=== PATIENT | female | born 1960 | race Hispanic/Latino ===

== ENCOUNTER 2017-07-15 07:12 | Day surgery (SDC) | payer BC ==
[2017-07-08 14:09] VITALS: BMI 27.4
[2017-07-15 07:50] LABS: BASO # 0.03 K/mm3 (0.0-2.0); BASO % 0.5 % (0.0-3.0); EOS # 0.2 (0.0-0.7); EOS % 2.3 % (1.5-5.0); GRAN # 3.5 (1.4-6.5); GRAN % 54.6 % (50.0-68.0); HEMOGLOBIN 12.6 g/dL (12.0-16.0); LYMPH % 30.5 % (22.0-35.0); MEAN CELL VOLUME 97.2 fl (80.0-105.0); MEAN CORPUSCULAR HEMOGLOBIN 32.5 pg (25.0-35.0); MEAN CORPUSCULAR HGB CONC 33.4 g/dl (31.0-37.0); MEAN PLATELET VOLUME 8.7 fl (7.0-11.0); MONO # 0.8 (0.1-0.6); MONO % 12.1 % (1.0-6.0); RBC 3.88 10^6/uL (3.5-6.1); RED CELL DISTRIBUTION WIDTH 14.2 % (11.5-14.5); WHITE BLOOD COUNT 6.4 10^3/ul (4.5-11.0)
[2017-07-15 07:57] LABS: BLOOD UREA NITROGEN 12 mg/dL (7-21); GFR AFRICAN-AMERICAN > 60; GFR NON-AFRICAN AMERICAN > 60
[2017-07-15 08:01] LABS: INR 1.04 (0.93-1.08); PARTIAL THROMBOPLASTIN TIME 27.7 Seconds (25.1-36.5)
[2017-07-15] MEDS ORDERED: Midazolam 2 MG/2 ML VIAL ONE (09:10)
[2017-07-15] MEDS ORDERED: Lidocaine 1% Inj (20ml) ONE (09:34)
[2017-07-15] MEDS ORDERED: Oxycodone/Acetaminophen 5/325 mg Tab PO PRN (10:12)
[2017-07-15] MEDS ORDERED: Sodium Chloride 0.45% 1,000 ML IV SCH (10:15)
[2017-07-15 10:35] VITALS: O2SAT 100
[2017-07-15 11:15] VITALS: BP 104/76; PULSE 70; RESP 20; TEMP 97.8
--- NOTE | 2017-07-15 15:33 | CT ---
PROCEDURE: CT guided right acromial bone biopsy. HISTORY: Breast carcinoma. 2 cm lytic lesion on PET scan in the right acromion. Evaluate for metastatic disease. PHYSICIAN(S): Morris Ulrich MD. TECHNIQUE: The relative risks and indications of the procedure were explained to the patient and consent obtained. The patient was placed left decubitus position on the CT scanner and preliminary images through the right AC joint obtained. Conscious sedation and monitoring were provided throughout the procedure by a nurse. There is a 2.5 cm lytic area in the distal aspect of the right acromion.. A right posterior oblique approach was selected and the area prepped and draped in the usual sterile fashion. 1% Xylocaine was used to anesthetize the skin and soft tissues. A on control bone biopsy needle was advanced at an oblique angle to the lytic area. Two core biopsies were obtained. The patient tolerated the procedure well IMPRESSION: 1. CT-guided right acromium bone biopsy as described above.
== END 2017-07-15 13:00 | disposition home or self-care (01) ==
LOC: SDS 07:12
PROVIDERS: ATTEND Radiology Vascular & Interventional Radiology
DX: C85.14 Unspecified B-cell lymphoma, lymph nodes of axilla and upper limb (principal); C50.911 Malignant neoplasm of unspecified site of right female breast; I10 Essential (primary) hypertension; I25.10 Atherosclerotic heart disease of native coronary artery without angina pectoris; Z98.42 Cataract extraction status, left eye; Z98.41 Cataract extraction status, right eye; Z95.1 Presence of aortocoronary bypass graft
CPT/HCPCS: 20220; 36415; 77012; 80048; 85025; 85610; 85730; 88307; 88311; 99152; 99153; J2250; J2405; J3010; J7030

== ENCOUNTER 2017-09-08 12:07 | Day surgery (SDC) | payer BC ==
[2017-09-06 12:38] VITALS: BMI 27.8
[2017-09-08 12:52] LABS: BASO # 0.01 K/mm3 (0.0-2.0); EOS # 0.2 (0.0-0.7); EOS % 22.7 % (1.5-5.0); GRAN # 0.02 (1.4-6.5); HEMOGLOBIN 11.8 g/dL (12.0-16.0); LYMPH # 0.7 (1.2-3.4); LYMPH % 72.2 % (22.0-35.0); MEAN CELL VOLUME 94.6 fl (80.0-105.0); MEAN CORPUSCULAR HEMOGLOBIN 32.2 pg (25.0-35.0); MEAN PLATELET VOLUME 9.7 fl (7.0-11.0); MONO % 2.1 % (1.0-6.0); PLATELET COUNT 107 10^3/uL (120.0-450.0); RBC 3.67 10^6/uL (3.5-6.1); RED CELL DISTRIBUTION WIDTH 13.1 % (11.5-14.5)
[2017-09-08 13:08] LABS: BLOOD UREA NITROGEN 12 mg/dL (7-21); CALCIUM 8.8 mg/dL (8.4-10.5); GFR AFRICAN-AMERICAN > 60; GFR NON-AFRICAN AMERICAN > 60
[2017-09-08 13:12] LABS: INR 1.06 (0.93-1.08); PARTIAL THROMBOPLASTIN TIME 25.9 Seconds (25.1-36.5); PROTHROMBIN TIME 12.1 SECONDS (9.4-12.5)
[2017-09-08 14:25] LABS: BAND 1 % (0-2); EOSINOPHIL 18 % (0.0-3.0); LYMPHOCYTE 72 % (22.0-35.0); MONOCYTE 7 % (1.0-6.0); NEUTROPHIL 2 % (50.0-70.0)
[2017-09-08 14:26] LABS: PLATELET ESTIMATE LOW (NORMAL)
[2017-09-08] MEDS ORDERED: Lidocaine 2% Inj (20ml) ONE (16:04)
[2017-09-08] MEDS ORDERED: Iodixanol 320 MG/ML 100 ML BOTTLE IV ONE (16:04)
[2017-09-08] MEDS ORDERED: Midazolam 2 MG/2 ML VIAL ONE (16:16)
[2017-09-08] MEDS ORDERED: Oxycodone/Acetaminophen 5/325 mg Tab PO PRN (16:56)
[2017-09-08] MEDS ORDERED: Sodium Chloride 0.45% 1,000 ML IV SCH (17:00)
[2017-09-08 17:52] VITALS: RESP 18; TEMP 98.6
[2017-09-08 18:11] VITALS: BP 102/55; PULSE 77; O2SAT 95
--- NOTE | 2017-09-08 19:06 | VASCULAR ---
PROCEDURE: Ultrasound and fluoroscopic leftupper extremity venous access port. CLINICAL HISTORY: B-cell lymphoma. History breast CA.Venous port for chemotherapy. PHYSICIAN(S): Morris Ulrich M.D. TECHNIQUE: The relative risks and indications of the procedure were explained to the patient and consent obtained. The patient was placed supine on the arteriogram table and the left arm prepped and draped in the usual sterile fashion. Conscious sedation monitoring was provided throughout the procedure by a nurse. Antibiotics were given prior to the procedure. A tourniquet was applied the left axilla. Under direct ultrasound guidance, the left basilic vein was punctured with a micro-puncture set. A 0.035 angled Glidewire was advanced into the IVC. A 4 cm incision was made at the venous access site and the pocket blunted dissected. A 6 Telugu single-lumen catheter, 40 cm long, was advanced to the SVC/RA junction. The catheter was trimmed and attached to the port. The port aspirates and injects easily. The port was placed in the pocket and closed in 2 layers. The patient tolerated the procedure well. IMPRESSION: Ultrasound and fluoroscopically placed left upper extremity venous access port.
== END 2017-09-08 18:40 | disposition home or self-care (01) ==
LOC: SDS 12:07
PROVIDERS: ATTEND Radiology Vascular & Interventional Radiology
DX: C50.919 Malignant neoplasm of unspecified site of unspecified female breast (principal); C85.10 Unspecified B-cell lymphoma, unspecified site; I25.10 Atherosclerotic heart disease of native coronary artery without angina pectoris; Z95.1 Presence of aortocoronary bypass graft
CPT/HCPCS: 36415; 36561; 76937; 77001; 80048; 85025; 85610; 85730; 99152; C1769; C1788; J0690; J1644; J2250; J2405; J3010; J7030 ×2; Q9967

== ENCOUNTER 2017-10-21 10:05 | Inpatient (IN) | payer BC ==
[2017-10-21 10:13] VITALS: BMI 27.4
--- NOTE | 2017-10-21 10:56 | ED PDOC ---
Arrival/HPI - General Chief Complaint: Abnormal Skin Integrity Time Seen by Provider: 10/21/17 10:44 Historian: Patient - History of Present Illness Narrative History of Present Illness (Text): 57 y/o F w/ h/o high grade lymphoma, currently on aspirin and Plavix presenting with mechanical fall that occurred today. She reports walking a dog when she stepped on a piece of uneven pavement and sustained mechanical fall onto her left side. She reports sustaining a laceration to her left forehead. She reports being unconscious for a few seconds, but was able to arise on her own. She denies neck pain, back pain or midline tenderness. She reports being able to ambulate with assistance. She denies chest pain, shortness of breath, fevers , chills, dizziness, abdominal pain, cough, nausea/emesis, back pain, numbness/ tingling or any syncopal episode. Representative Phlebotomy Services: Dr. Wise Oncologist: Dr. Dunbar PCP: Dr. Contreras Neurologist: Dr. Martin Symptom Onset: Sudden Symptom Course: Other Quality: Unable to Describe Severity Level: 6 Activities at Onset: Light Context: Walking Past Medical History - Provider Review Nursing Documentation Reviewed: Yes - Travel History Have you recently traveled outside [place] w/in the past 3 mons?: No - Infectious Disease Hx of Infectious Diseases: None - Reproductive Menopause: Yes - Cardiac Hx Pacemaker: No Other/Comment: triple bypass - Pulmonary Hx Respiratory Disorders: No - Neurological Hx Paralysis: No - Hematological/Oncological Hx Blood Transfusions: Yes Hx Blood Transfusion Reaction: No Other/Comment: lymphoma - Musculoskeletal/Rheumatological Hx Musculoskeletal Disorders: Yes - Psychiatric Hx Emotional Abuse: No Hx Physical Abuse: No Hx Substance Use: No - Anesthesia Hx Anesthesia Reactions: No Hx Malignant Hyperthermia: No - Suicidal Assessment Feels Threatened In Home Enviroment: No Family/Social History - Physician Review Nursing Documentation Reviewed: Yes Family/Social History: No Known Family HX Smoking Status: Unknown If Ever Smoked Hx Alcohol Use: Yes (WINE AT [employer]) Hx Substance Use: No Allergies/Home Meds Allergies/Adverse Reactions: Allergies No Known Allergies Allergy (Verified 10/21/17 16:20) Home Medications: Home Meds Medication Instructions Recorded Confirmed Amitriptyline [Elavil] 50 mg PO HS 07/08/17 10/21/17 Anastrozole [Arimidex] 1 mg PO QPM 07/08/17 10/21/17 Aspirin [Adult Aspirin] 81 mg PO QPM 07/08/17 10/21/17 Cetirizine HCl [Zyrtec] 10 mg PO QPM 07/08/17 10/21/17 Cholecalciferol (Vitamin D3) 50,000 units PO Q2W 07/08/17 10/21/17 [Vitamin D3] Clopidogrel [Plavix] 75 mg PO QPM 07/08/17 10/21/17 Ezetimibe [Zetia] 10 mg PO QPM 07/08/17 10/21/17 Metoprolol Succinate XL [Toprol XL] 50 mg PO QPM 07/08/17 10/21/17 Montelukast Sodium [Singulair] 10 mg PO QPM 07/08/17 10/21/17 Rosuvastatin Calcium [Crestor] 40 mg PO QPM 07/08/17 10/21/17 Docusate [Colace] 100 mg PO DAILY 10/21/17 10/21/17 Review of Systems - Review of Systems Constitutional: Normal Eyes: Normal Respiratory: Normal. absent: SOB, Cough Cardiovascular: absent: Chest Pain, Palpitations, Edema Gastrointestinal: absent: Abdominal Pain, Nausea, Vomiting Musculoskeletal: absent: Back Pain, Neck Pain, Myalgias Skin: Laceration Neurological: absent: Headache, Dizziness, Focal Weakness, Gait Changes Hemo/Lymphatic: Easy Bleeding Psychiatric: Anxiety Physical Exam Vital Signs Reviewed: Yes Vital Signs Temp Pulse Resp BP Pulse Ox 10/21/17 13:57 80 18 118/64 100 10/21/17 12:11 78 18 98/64 L 100 10/21/17 10:11 98.1 F 78 18 121/70 100 Temperature: Afebrile Blood Pressure: Normal Pulse: Regular Appearance: Positive for: Well-Appearing Mental Status: Positive for: Alert and Oriented X 3 - Systems Exam Head: Present: Laceration (2cm linear laceration noted to L nondenominational) Pupils: Present: PERRL Extroacular Muscles: Present: EOMI Conjunctiva: Present: Normal Mouth: Present: Moist Mucous Membranes Neck: Present: Normal Range of Motion. No: MIDLINE TENDERNESS, Paraspinal Tenderness Respiratory/Chest: Present: Clear to Auscultation, Good Air Exchange. No: Respiratory Distress, Tachypneic Cardiovascular: Present: Regular Rate and Rhythm, Normal S1, S2 Abdomen: No: Tenderness, Distention, Peritoneal Signs Back: No: Midline Tenderness, Paraspinal Tenderness Upper Extremity: Present: Other (ecchymoses present on LUE w/ palpable catheter embedded w/n skin). No: Cyanosis, Edema Neurological: Present: GCS=15, CN II-XII Intact, Speech Normal, Motor Func Grossly Intact, Normal Sensory Function Skin: Present: Warm, Dry (Healed surgical midline scar present in chest), Laceration (2cm laceration noted to L nondenominational), Other Psychiatric: Present: Alert, Oriented x 3, Normal Insight, Normal Concentration Medical Decision Making ED Course and Treatment: Impression 57 y/o F on Plavix and ASA presenting with head injury s/p mechanical fall. Given the patient's history of being on blood thinners, she is at risk for intracranial bleeding and possible C-spine fracture(meets eligibility criteria per Emm[place] C-Spine rule). If bleeding is discovered, she will be monitored in the ICU with repeat imaging studies to determine progression of bleed. Differential Includes but is not limited to: Subarachnoid hemorrhage Subdural hemorrhage Calavarial fracture Plan -Labs(including coags) -Consult NeuroSx, ICU & PCP(as well as oncology and neurology) -Frequent Neuro Checks Q2H Progress Notes 11:15 Radiologist discussion reveals small subarachnoid hemorrhages present within sulci of bilateral hemispheres. CT c-spine shows no acute fractures or subluxations. Call placed to Dr. Orozco(neurosurgery). 10/21/17 12:[address] Orozco who agrees with plan of management. He requests for repeat CTH to be performed in the morning. Call to motion picture camera lens technician placed. 10/21/17 12:[address] Moreno(motion picture camera lens technician) who will evaluate the patient. Awaiting call back from Dr. Garcia. 10/21/17 15:[address] Moreno who accepts patient to ICU under care of Dr. Garcia. Patient states she has a neurologist, Dr. Martin. Will check to see if Dr. Martin has privileges at hospital. 10/21/17 15:[address] Mckeon(oncologist) who requests patient to be transferred over to his service. He states patient had active chemotherapy last week. He requests Dr. Cruz(neurology) to be consulted. Call placed to Dr. Garcia. 10/21/17 16:[address] Garcia(PCP) & updated him on transition of care to Dr. Cameron. Spoke to Dr. Torey Cruz(neurology) who requests CT angiography of the head to be performed to evaluate for rebleeding. Will update ICU team of impending imaging studies. Spoke to Dr. Moreno(motion picture camera lens technician) who is aware of updated findings and will perform CTA tonight. - Lab Interpretations Lab Results: 10/21/17 11:25 10/21/17 11:25 Lab Results 10/21/17 11:25: Sodium 141, Potassium 4.1, Chloride 105, Carbon Dioxide 27, Anion Gap 13, BUN 9, Creatinine 0.5 L, Est GFR ( Amer) > 60, Est GFR (Non -Af Amer) > 60, Random Glucose 100, Calcium 9.3, Total Bilirubin 0.2, AST 21, ALT 28, Alkaline Phosphatase 88, Total Protein 6.2, Albumin 3.7, Globulin 2.6, Albumin/Globulin Ratio 1.4 10/21/17 11:25: WBC 4.8 D, RBC 3.39 L, Hgb 10.7 L, Hct 32.1 L, MCV 94.7, MCH 31.6, MCHC 33.3, RDW 14.4, Plt Count 105 L, MPV 9.1, Gran % 72.2 H, Lymph % ( Auto) 11.8 L, [place] % (Auto) 14.7 H, Eos % (Auto) 1.1 L, Baso % (Auto) 0.2, Gran # 3.44, Lymph # (Auto) 0.6 L, [place] # (Auto) 0.7 H, Eos # (Auto) 0.1, Baso # ( Auto) 0.01 10/21/17 11:25: PT 12.3, INR 1.07, APTT 25.3 - RAD Interpretation Radiology Orders: 10/21/17 10:44 HEAD W/O CONTRAST [CT] Stat 10/21/17 10:45 CERVICAL SPINE W/O CONTRAST [CT] Stat - EKG Interpretation EKG Interpretation (Text): NSR @ 80bpm. No ST elevations. No T wave changes. Interpreted by ED Physician: Yes Type: 12 lead EKG Comparison: Similar to previous EKG - Medication Orders Current Medication Orders: Allopurinol (Zyloprim) 100 mg PO BID MANUELA Ezetimibe (Zetia) 10 mg PO QPM MANUELA Famotidine (Pepcid) 20 mg PO QPM MANUELA Montelukast Sodium (Singulair) 10 mg PO QPM MANUELA Non-Formulary Medication (Rosuvastatin Calcium [Crestor]) 40 mg PO QPM MANUELA Discontinued Medications Famotidine (Pepcid) 20 mg IVP STAT STA Stop: 10/21/17 12:05 Last Admin: 10/21/17 12:25 Dose: 20 mg IVP Administration Document 10/21/17 12:25 MR (Rec: 10/21/17 12:25 [id number]) Charges for Administration # of IVP Administrations 1 Sodium Chloride (Sodium Chloride 0.9%) 1,000 mls @ 999 mls/hr IV .Q1H1M STA Stop: 10/21/17 13:06 Last Admin: 10/21/17 12:25 Dose: 999 mls/hr eMAR Start Stop Document 10/21/17 12:25 MR (Rec: 10/21/17 12:25 [id number]) Intravenous Solution Start Date 10/21/17 Start Time 12:25 End Date 10/21/17 End time 13:25 Total Infusion Time 60 Metoclopramide HCl (Reglan) 10 mg IVP STAT STA Stop: 10/21/17 12:05 Last Admin: 10/21/17 12:26 Dose: 10 mg IVP Administration Document 10/21/17 12:26 MR (Rec: 10/21/17 12:26 [id number]) Charges for Administration # of IVP Administrations 1 Disposition/Present on Arrival - Present on Arrival Any Indicators Present on Arrival: No History of DVT/PE: No History of Uncontrolled Diabetes: No Urinary Catheter: No History of Decub. Ulcer: No History Surgical Site Infection Following: None - Disposition Have Diagnosis and Disposition been Completed?: Yes Diagnosis: Subarachnoid bleed, Laceration of head, Fall (on)(from) sidewalk curb, initial encounter Disposition: HOSPITALIZED Disposition Time: 15:30 Patient Problems: Current Active Problems Problem Status Onset Fall (on)(from) sidewalk curb, initial encounter Acute Laceration of head Acute Subarachnoid bleed Acute Condition: FAIR
--- NOTE | 2017-10-21 11:13 | CT ---
Date of service: 10/21/2017 PROCEDURE: CT HEAD WITHOUT CONTRAST. HISTORY: mechanical fall COMPARISON: None available. TECHNIQUE: Axial computed tomography images were obtained through the head/brain without intravenous contrast. Radiation dose: Total exam DLP = 945 mGy-cm. This CT exam was performed using one or more of the following dose reduction techniques: Automated exposure control, adjustment of the mA and/or kV according to patient size, and/or use of iterative reconstruction technique. FINDINGS: HEMORRHAGE: There is a small amount of subarachnoid blood seen in the sulci of both cerebral hemispheres. There is no evidence of subdural hemorrhage. BRAIN: No mass effect or edema. No atrophy or chronic microvascular ischemic changes. VENTRICLES: Unremarkable. No hydrocephalus. CALVARIUM: Unremarkable. PARANASAL SINUSES: Unremarkable as visualized. No significant inflammatory changes. MASTOID AIR CELLS: Unremarkable as visualized. No inflammatory changes. OTHER FINDINGS: Findings were discussed with Dr. Craig at 11:10 a.m. IMPRESSION: There is a small amount of subarachnoid blood seen in the sulci of both cerebral hemispheres. There is no evidence of subdural hemorrhage.
--- NOTE | 2017-10-21 11:15 | CT ---
Date of service: 10/21/2017 PROCEDURE: CT Cervical Spine without contrast HISTORY: fall COMPARISON: None available. TECHNIQUE: Axial computed tomography images were obtained of the cervical spine without the use of intravenous contrast. Coronal and sagittal reformatted images were created and reviewed. Radiation dose: Total exam DLP = 404 mGy-cm. This CT exam was performed using one or more of the following dose reduction techniques: Automated exposure control, adjustment of the mA and/or kV according to patient size, and/or use of iterative reconstruction technique. FINDINGS: VERTEBRAE: No fracture. Normal alignment. No destructive bony lesion. DISCS/SPINAL CANAL/NEURAL FORAMINA: No significant central canal or neural foraminal stenosis. Disc degeneration in the lower cervical spine PARASPINAL SOFT TISSUES: Unremarkable. OTHER FINDINGS: None. IMPRESSION: No acute findings
[2017-10-21 11:40] LABS: BASO # 0.01 K/mm3 (0.0-2.0); BASO % 0.2 % (0.0-3.0); EOS # 0.1 (0.0-0.7); EOS % 1.1 % (1.5-5.0); GRAN # 3.44 (1.4-6.5); GRAN % 72.2 % (50.0-68.0); HEMOGLOBIN 10.7 g/dL (12.0-16.0); LYMPH # 0.6 (1.2-3.4); LYMPH % 11.8 % (22.0-35.0); MEAN CELL VOLUME 94.7 fl (80.0-105.0); MEAN CORPUSCULAR HEMOGLOBIN 31.6 pg (25.0-35.0); MEAN CORPUSCULAR HGB CONC 33.3 g/dl (31.0-37.0); MEAN PLATELET VOLUME 9.1 fl (7.0-11.0); MONO # 0.7 (0.1-0.6); MONO % 14.7 % (1.0-6.0); RBC 3.39 10^6/uL (3.5-6.1); RED CELL DISTRIBUTION WIDTH 14.4 % (11.5-14.5); WHITE BLOOD COUNT 4.8 10^3/ul (4.5-11.0)
[2017-10-21 11:50] LABS: INR 1.07; PROTHROMBIN TIME 12.3 SECONDS (9.4-12.5)
[2017-10-21 11:53] LABS: PARTIAL THROMBOPLASTIN TIME 25.3 Seconds (25.1-36.5)
[2017-10-21 12:01] LABS: ALB/GLOB RATIO 1.4 (1.1-1.8); ALBUMIN 3.7 g/dL (3.0-4.8); ALT/SGPT 28 U/L (7-56); AST/SGOT 21 U/L (14-36); BLOOD UREA NITROGEN 9 mg/dL (7-21); CALCIUM 9.3 mg/dL (8.4-10.5); GFR AFRICAN-AMERICAN > 60; GFR NON-AFRICAN AMERICAN > 60
[2017-10-21] MEDS ORDERED: Sodium Chloride 0.9% 1,000 ML IV STA (12:06)
--- NOTE | 2017-10-21 12:14 | CP.PCM.PN ---
Subjective - Date & Time of Evaluation Date of Evaluation: 10/21/17 Time of Evaluation: 12:12 - Subjective Subjective: 57 yo female tripped and fell while walking dog cT shows traumatic SAH no intervention at this time repeat CT in AM if unchanged can be d/c home Objective - Vital Signs/Intake and Output Vital Signs (last 24 hours): Temp Pulse Resp BP Pulse Ox 98.1 F 78 18 98/64 L 100 10/21/17 10:11 10/21/17 12:11 10/21/17 12:11 10/21/17 12:11 10/21/17 12:11 - Medications Medications: Current Medications Sodium Chloride (Sodium Chloride 0.9%) 1,000 mls @ 999 mls/hr IV .Q1H1M STA Stop: 10/21/17 13:06 - Labs Labs: 10/21/17 11:25 10/21/17 11:25 PT 12.3 SECONDS (9.4-12.5) 10/21/17 11:25 INR 1.07 10/21/17 11:25 APTT 25.3 Seconds (25.1-36.5) 10/21/17 11:25
--- NOTE | 2017-10-21 14:20 | RAD ---
Date of service: 10/21/2017 HISTORY: fall COMPARISON: No prior. FINDINGS: The left PICC line terminates at the cavoatrial junction. LUNGS: The lungs are hyperinflated and there is peribronchial thickening with chronic changes in both lungs. No focal consolidation. There is mild pulmonary venous congestion PLEURA: No significant pleural effusion identified, no pneumothorax apparent. CARDIOVASCULAR: There is mild cardiomegaly. Status post CABG. OSSEOUS STRUCTURES: No significant abnormalities. VISUALIZED UPPER ABDOMEN: Normal. OTHER FINDINGS: None. IMPRESSION: No acute findings. COPD. Mild cardiomegaly and pulmonary venous congestion.
--- NOTE | 2017-10-21 15:03 | CP.PCM.CON ---
History of Present Illness - History of Present Illness History of Present Illness: This is a 57F with a hx of b-cell lymphoma on chemo and CAD s/p CABG (10 years ago).presenting with mechanical fall earlier today resulting in CT Head showing small BL SAH. She woke up in her usual state of health this morning, went out to walk her dog around 0900am. She stepped on uneven pavement and suddenly fell her left side. She does not recall specific details of the fall but says it is possible that she +LOC. She sustained a laceration to her left forehead. She was able to get up on her own and get help. She denies any neuro symptoms such as weakness, slurred speech, or vision changes. She denies neck pain, back pain or headaches. She denies chest pain, shortness of breath, dizziness, abdominal pain, cough, nausea/emesis, back pain, numbness/tingling,. She was brought into the ED and a CT HEAD demonstrated small SAH in BL sulci. Neurosurg was informed and recommended no surgical intervention. She is not on anticoagulation however she is on dual antiplatlet for her CAD/PVD Of note, she has a hx of b-cell lymphoma currently on RCHOP. She had her 3rd cycle last week. She only gets pred for 5 days after her tx and is not currently on pred. Onc is Dr. Cameron. PMH: B Cell lymphoma on RCHOP CAD/CABG over 10 years ago [facility] Past Surgical Hx: CABG Allx: none Social: lives alone; smoking 30yrs x 1ppd quit 10 years ago. Rare etoh; Review of Systems - Review of Systems All systems: reviewed and no additional remarkable complaints except - Constitutional Constitutional: As Per HPI - EENT Eyes: absent: As Per HPI, Blind Spots, Blurred Vision, Change in Vision, Decreased Night Vision, Diplopia, Discharge, Dry Eye, Exophthalmos, Floaters, Irritation, Itchy Eyes, Loss of Peripheral Vision, Pain, Photophobia, Requires Corrective Lenses, Sees Flashes, Spots in Vision, Tunnel Vision, Other Visual Disturbances, Loss of Vision, Other - Cardiovascular Cardiovascular: absent: As Per HPI, Acrocyanosis, Chest Pain, Chest Pain at Rest , Chest Pain with Activity, Claudication, Diaphoresis, Dyspnea, Dyspnea on Exertion, Edema, Irregular Heart Rhythm, Pain Radiating to Arm/Neck/Jaw, Leg Edema, Leg Ulcers, Lightheadedness, Orthopnea, Palpitations, Paroxysmal Nocturnal Dyspnea, Pedal Edema, Radiating Pain, Rapid Heart Rate, Slow Heart Rate, Syncope, Other - Respiratory Respiratory: absent: As Per HPI, Cough, Dyspnea, Hemoptysis, Dyspnea on Exertion , Wheezing, Snoring, Stridor, Pain on Inspiration, Chest Congestion, Excessive Mucous Production, Change in Mucous Color, Pain with Coughing, Other - Gastrointestinal Gastrointestinal: absent: As Per HPI, Abdominal Pain, Belching, Bloating, Change in Bowel Habits, Change in Stool Character, Coffee Ground Emesis, Constipation, Cramping, Diarrhea, Dyspepsia, Dysphagia, Early Satiety, Excessive Flatus, Fecal Incontinence, Heartburn, Hematemesis, Hematochezia, Loose Stools, Melena, Nausea, Odynophagia, Temesmus, Vomiting, Other - Musculoskeletal Musculoskeletal: As Per HPI - Integumentary Integumentary: As Per HPI - Neurological Neurological: absent: As Per HPI, Abnormal Gait, Abnormal Hearing, Abnormal Movements, Abnormal Speech, Behavioral Changes, Burning Sensations, Confusion, Convulsions, Disequilibrium, Dizziness, Numbness, Focal Weakness, Frequent Falls , Headaches, Lack of Coordination, Loss of Vision, Memory Loss, Paresthesias, Radicular Pain, Restless Legs, Sensory Deficit, Syncope, Tingling, Tremor, Vertigo, Weakness, Other Visual Disturbances, Other Past Patient History - Infectious Disease Hx of Infectious Diseases: None - Past Medical History & Family History Past Medical History?: Yes - Past Social History Smoking Status: Unknown If Ever Smoked - CARDIAC Hx Pacemaker: No Other/Comment: triple bypass - PULMONARY Hx Respiratory Disorders: No - NEUROLOGICAL Hx Paralysis: No - HEMATOLOGICAL/ONCOLOGICAL Hx Blood Transfusions: Yes Hx Blood Transfusion Reaction: No Other/Comment: lymphoma - MUSCULOSKELETAL/RHEUMATOLOGICAL Hx Musculoskeletal Disorders: Yes - PSYCHIATRIC Hx Emotional Abuse: No Hx Physical Abuse: No Hx Substance Use: No - SURGICAL HISTORY Hx Surgeries: Yes - ANESTHESIA Hx Anesthesia Reactions: No Hx Malignant Hyperthermia: No Meds Allergies/Adverse Reactions: Allergies Allergy/AdvReac Type Severity Reaction Status Date / Time No Known Allergies Allergy Verified 10/21/17 10:15 - Medications Medications: Current Medications Allopurinol (Zyloprim) 100 mg PO BID MANUELA Ezetimibe (Zetia) 10 mg PO QPM MANUELA Famotidine (Pepcid) 20 mg PO QPM MANUELA Montelukast Sodium (Singulair) 10 mg PO QPM MANUELA Non-Formulary Medication (Rosuvastatin Calcium [Crestor]) 40 mg PO QPM MANUELA Home Meds: ASA Plavix toprol XL 50 pepcid crestor zetia amitriptylline arimidex singulair 10 allopurinol 100 BID coloace percocet PRN Physical Exam - Head Exam Additional comments: laceration wrapped by ED, dressing c/d/i - Eye Exam Eye Exam: EOMI, Normal appearance Pupil Exam: NORMAL ACCOMODATION, PERRL - ENT Exam ENT Exam: Mucous Membranes Dry, Normal Exam - Neck Exam Neck exam: Positive for: Normal Inspection - Respiratory Exam Respiratory Exam: Clear to Auscultation Bilateral - Cardiovascular Exam Cardiovascular Exam: REGULAR RHYTHM. absent: Tachycardia, JVD, Rubs - GI/Abdominal Exam GI & Abdominal Exam: Normal Bowel Sounds - Extremities Exam Extremities exam: Positive for: normal inspection Additional comments: Strength 5/5 bl UE and LE Results - Vital Signs Recent Vital Signs: Last Vital Signs Temp 98.1 F 10/21/17 10:11 Pulse 80 10/21/17 13:57 Resp 18 10/21/17 13:57 BP 118/64 10/21/17 13:57 Pulse Ox 100 10/21/17 13:57 - Labs Result Diagrams: 10/21/17 11:25 10/21/17 11:25 - Imaging and Cardiology CT scan - head Additional comment: Small SAH BL Sulci Assessment & Plan - Assessment and Plan (Free Text) Assessment: 1. Acute SAH 2. Hx of CAD/CABG on ASA/PLAVIX 3. BCell lympoma on RCHOP Dafne is a 57F presenting with a SAH from a mechanical fall. She has no neurological/cognitive deficits however she is at risk for declining given that she is on dual antiplatelet. In addition she is thrombocytopenic at 105 which may be from her chemo. At this point we will observe her in the ICU with q1 neuro checks. HOLD asa/plavix and BB for now. Her BP runs low which may benefit her in this situation was we want to avoid hypertension. Any acute neuro changes should warrant STAT CT head. Neurosurg is on board and we will follow their recs. Plan for repeat CT Head in AM. Will notify Onc (Dr Cameron) in regards to his patient. Tiffani Dhillon MD Critical Care Time: 45 mins
[2017-10-21] MEDS: Apap-Butalbital-Caffeine 325-50-40mg Tab PO PRN (18:18)
[2017-10-21] MEDS ORDERED: Aluminum Hydroxide/Magnesium 30 ML, DiphenhydrAMINE 75 MG, Lidocaine 2% Viscous 30 ML PO PRN (19:26)
--- NOTE | 2017-10-21 19:33 | CON ---
Copied To: Stephen Cruz MD Attending MD: Stephen Cruz MD DATE: 10/21/2017 NEUROLOGY CONSULTATION CHIEF COMPLAINT: Status post fall, status post subarachnoid hemorrhage. HISTORY OF PRESENT ILLNESS: This is a 57-year-old woman with history of B-cell lymphoma, on chemotherapy by Dr. Cameron; coronary artery disease, status post CABG 10 years ago, presented for mechanical fall earlier today resulting in a trauma to the left part of the head, resulting in a CAT scan showing a small bilateral subarachnoid hemorrhage, small in nature. No evidence of any subdural. She denies any paresthesias in terms of tingling, numbness in the extremities. Overall, she is moving all extremities, able to communicate well. No aphasia noted. Moving all extremities equally. No pronator drifts seen. She will get a repeat CAT scan tomorrow. Neurosurgery is on board. She is not on any anticoagulation but was on dual antiplatelet therapy for a CAD and PVD, which will be helpful at least two weeks in the onset of bleed. PAST MEDICAL HISTORY: B-cell lymphoma, on R-CHOP; coronary artery disease and CABG about 10 years ago; Raynaud's. PAST SURGICAL HISTORY: CABG. ALLERGIES: NO KNOWN DRUG ALLERGIES. SOCIAL HISTORY: She has a long smoking 30 years one pack per day, quit 10 years ago. No ETOH use. No illicit drug use. REVIEW OF SYSTEMS: A 14-point review of systems is negative except as per the HPI. FAMILY HISTORY: Noncontributory. PHYSICAL EXAMINATION: GENERAL: Patient is sitting up in bed, in no acute distress. VITAL SIGNS: Temperature afebrile, pulse rate 86, blood pressure 129/65, respirations 18, oxygen saturation 97% on room air. HEENT: Atraumatic, normocephalic. PERRLA. Extraocular muscles intact. She has a laceration wrapped by the ED on her head. NECK: Supple. No JVD, no adenopathy noted. HEART: S1 and S2. Normal rate and rhythm. No murmurs, rubs or gallops. ABDOMEN: Soft, nontender, and nondistended. Bowel sounds are present. EXTREMITIES: No clubbing. No cyanosis. Peripheral pulses 2+ felt bilaterally. NEUROLOGIC: The patient is alert and oriented to person, place, month and year. Speech is fluent without any errors. Cranial nerves II through XII intact. Moves all extremities equally. No pronator drift seen. Sensory exam: Light touch, pinprick, proprioception and vibration are intact. DTRs are 2+ throughout. Coordination: [id number] intact. No dysmetria noted. Gait is deferred for now. LABORATORY DATA: Sodium is 141, potassium 4.1, chloride is 105, carbon dioxide 27, BUN o f 9, creatinine 0.5, random glucose of 100. ASSESSMENT AND PLAN: This is a 57-year-old woman with past medical history of coronary artery disease, status post coronary artery bypass graft, who was on aspirin and Plavix, B-cell lymphoma on R-CHOP who presented with mechanical fall while walking her dog and hit her head and had a small bilateral subarachnoid hemorrhage in the sulci. Neurosurgery evaluated, recommended no neurosurgical intervention right now. She denies any paresthesias or any spinning sensation of the room. She has had mild headache for which she will be on Fioricet. At this time recommended; 1. CT angiogram of the head to assess for her cerebral vessels. 2. Repeat CAT scan in the morning, which is also recommended by Neurosurgery. 3. Neuro checks every 2 hours. 4. Keep her systolic blood pressure between 120s to 130s and diastolic 70 to 80. 5. Follow up with Neurosurgery evaluation. 6. Physical therapy/Occupational therapy evaluation and continue current present medical management. She is currently stable at this point. Thank you for this consult. Stephen Cruz MD
[2017-10-21] MEDS ORDERED: Bacitracin Ointment 30 GM TUBE TOP ONE (21:41)
--- NOTE | 2017-10-21 21:46 | CARD ---
APPROVED REPORT Date of service: 10/21/2017 EKG Measurement Heart [id number] <Conclusion> Normal sinus rhythm Nonspecific T wave abnormality Prolonged QT Abnormal ECG
--- NOTE | 2017-10-21 22:11 | CP.PCM.CON ---
History of Present Illness - History of Present Illness History of Present Illness: Surgery Consult: Dr. Palmer Pt is 57F with PMHx significant for B cell lymphoma s/p chemo with R CHOP (3rd cycle completed) & CAD s/p CABG (10 yrs ago) on dual antiplatlet tx who presented to [facility] s/p fall. Pt states she was walking her dog earlier this morning & tripped/fell on the sidewalk, falling on her left side. Pt recalls falling & thinks she may have had +LOC but she admits to being able to get up and get help to come to the ER. In the ER, pt was found to have a 6-7cm laceration on the left forehead & CT head showed b/l small SAH for which neurosurgery was consulted. Gen Surgery consulted to evaluate the forehead laceration. Currently, pt is resting comfortably in her bed. She denies any headaches, nausea, vomiting or dizziness. Denies fevers/chills, chest pain or SOB. PMHx: B-cell lymphoma, CAD PSHx: chemoport, CABG SocialHx: 30+yr PPD smoking hx; denies EtOH/drugs NKDA Review of Systems - Review of Systems All systems: reviewed and no additional remarkable complaints except (as per HPI ) Past Patient History - Infectious Disease Hx of Infectious Diseases: None - Past Medical History & Family History Past Medical History?: Yes - Past Social History Smoking Status: Former Smoker - CARDIAC Hx Cardiac Disorders: Yes (CAD,CABG) Hx Hypercholesterolemia: Yes Hx Pacemaker: No Other/Comment: triple bypass - PULMONARY Hx Respiratory Disorders: Yes (USED TO SMOKE CIGARETTES QUIT 10 YRS AGO 1PPD) - NEUROLOGICAL Hx Neurological Disorder: No - HEENT Hx HEENT Problems: Yes (TONSILLECTOMY) Hx Cataracts: Yes (LASIK SURGERY TOO) - RENAL Hx Chronic Kidney Disease: No - ENDOCRINE/METABOLIC Hx Endocrine Disorders: No - HEMATOLOGICAL/ONCOLOGICAL Hx Blood Disorders: Yes (THROMBOCYTOPENIA) Hx Anemia: Yes (BLOOD TRANSFUSION) Hx Cancer: Yes (B CELL LYMPHOMA,BREAST CA) Hx Chemotherapy: Yes (3RD CYCLE. OCTOBER 2017) Hx Metastesis: Yes - INTEGUMENTARY Hx Dermatological Problems: Yes - MUSCULOSKELETAL/RHEUMATOLOGICAL Hx Musculoskeletal Disorders: Yes Hx Falls: Yes (10-21-17) - GASTROINTESTINAL Hx Gastrointestinal Disorders: No - GENITOURINARY/GYNECOLOGICAL Hx Genitourinary Disorders: No - PSYCHIATRIC Hx Psychophysiologic Disorder: No Hx Emotional Abuse: No Hx Physical Abuse: No Hx Substance Use: No - SURGICAL HISTORY Hx Surgeries: Yes Hx Coronary Artery Bypass Graft: Yes Hx Tonsillectomy: Yes - ANESTHESIA Hx Anesthesia Reactions: No Hx Malignant Hyperthermia: No Meds Allergies/Adverse Reactions: Allergies Allergy/AdvReac Type Severity Reaction Status Date / Time No Known Allergies Allergy Verified 10/21/17 16:20 - Medications Medications: Current Medications Acetaminophen/Butalbital/Caffeine (Fioricet) 1 tab PO Q4H PRN PRN Reason: headache pain Last Admin: 10/21/17 18:18 Dose: 1 tab Allopurinol (Zyloprim) 100 mg PO BID [facility] Last Admin: 10/21/17 17:13 Dose: 100 mg Amitriptyline HCl (Elavil) 50 mg PO HS [facility] Anastrozole (Arimidex 1 Mg Tab) 1 mg PO DAILY [facility] Clotrimazole (Mycelex Tab) 10 mg MT 5XD [facility] Al Hydrox/Mg Hydrox/Simethicone 30 ml/Diphenhydramine HCl 75 mg/Lidocaine 30 ml 0 ml PO QID PRN PRN Reason: Mouth/Throat Pain Docusate Sodium (Colace) 100 mg PO BID [facility] Famotidine (Pepcid) 20 mg PO QPM [facility] Last Admin: 10/21/17 17:13 Dose: 20 mg Metoprolol Succinate (Toprol Xl) 50 mg PO BRK [facility] Montelukast Sodium (Singulair) 10 mg PO QPM [facility] Last Admin: 10/21/17 17:13 Dose: 10 mg Physical Exam - Constitutional Appears: Well, No Acute Distress - Head Exam Additional comments: 6-7 cm laceration on Left frontal forehead; old blood/clots noted around laceration - Eye Exam Eye Exam: Normal appearance - ENT Exam ENT Exam: Mucous Membranes Moist - Respiratory Exam Respiratory Exam: NORMAL BREATHING PATTERN - Cardiovascular Exam Cardiovascular Exam: RRR - GI/Abdominal Exam GI & Abdominal Exam: Soft - Neurological Exam Neurological exam: Alert, Oriented x3 - Skin Skin Exam: Dry, Warm Results - Vital Signs Recent Vital Signs: Last Vital Signs Temp 98.1 F 10/21/17 18:16 Pulse 93 H 10/21/17 19:20 Resp 20 10/21/17 19:20 BP 141/81 08/09/18 19:01 Pulse Ox 100 10/21/17 19:01 - Labs Result Diagrams: 10/21/17 11:25 10/21/17 11:25 Assessment & Plan - Assessment and Plan (Free Text) Assessment: 57F with 7cm L forehead laceration s/p mechanical fall Plan: - bedside sutures placed - f/u for suture removal in 10 days - no further surgical intervention - d/w Dr. Spencer Newman
--- NOTE | 2017-10-21 22:19 | PCM.PROC ---
Procedures Attestation:: I certify that I have explained the specified Operation(s) or Procedure(s), risks, benefits and reasonable alternatives to the Patient and/or other person responsible. The opportunity was given to ask questions and all questions answered - Laceration with EPI simple, single layer linear irrigated extensively left face 5-0 other local infiltration simple, interrupted Site: other (Forehead) Side (if applicable): left Size (cm): 7 Description: linear, clean Depth: simple, single layer Anesthesia used: lidocaine 1%, with EPI Anesthesia technique: local infiltration Amount (mLs): 3 Pre-repair: wound explored, irrigated extensively Skin layer closed with: other (Prolene ) Size: 5-0 Number of sutures: 6 Technique: simple, interrupted
[2017-10-22] MEDS: Apap-Butalbital-Caffeine 325-50-40mg Tab PO PRN ×3 (02:17→23:17)
[2017-10-22 06:34] LABS: BASO # 0.01 K/mm3 (0.0-2.0); BASO % 0.2 % (0.0-3.0); EOS % 0.6 % (1.5-5.0); GRAN # 3.16 (1.4-6.5); HEMOGLOBIN 10.1 g/dL (12.0-16.0); LYMPH # 0.8 (1.2-3.4); LYMPH % 16.6 % (22.0-35.0); MEAN CORPUSCULAR HEMOGLOBIN 31.8 pg (25.0-35.0); MEAN CORPUSCULAR HGB CONC 33.4 g/dl (31.0-37.0); MEAN PLATELET VOLUME 9.4 fl (7.0-11.0); MONO # 0.7 (0.1-0.6); MONO % 14.6 % (1.0-6.0); RBC 3.18 10^6/uL (3.5-6.1); RED CELL DISTRIBUTION WIDTH 14.8 % (11.5-14.5); WHITE BLOOD COUNT 4.7 10^3/ul (4.5-11.0)
[2017-10-22 07:02] LABS: ALB/GLOB RATIO 1.3 (1.1-1.8); ALBUMIN 3.3 g/dL (3.0-4.8); ALT/SGPT 23 U/L (7-56); AST/SGOT 18 U/L (14-36); BLOOD UREA NITROGEN 3 mg/dL (7-21); CALCIUM 8.7 mg/dL (8.4-10.5); GFR AFRICAN-AMERICAN > 60; GFR NON-AFRICAN AMERICAN > 60
--- NOTE | 2017-10-22 08:03 | HP ---
Copied To: Sal Callejas MD Attending MD: Sal Callejas MD DATE OF EXAM: 10/21/2017 This admission to the Intensive Care Unit. For Dr. Cameron. CHIEF COMPLAINT: Subarachnoid hemorrhage. HISTORY OF PRESENT ILLNESS: The patient is a 57-year-old female being treated by Dr. Cameron for recently diagnosed B-cell lymphoma, high grade, currently on R-CHOP treatment with the third cycle over the last week. This was diagnosed on 07/2017. The patient also has history of CABG approximately 10 years prior with a fall earlier today while walking her dog with the patient tripping on an even pavement falling on her left side with possible question of loss of consciousness. She sustained the laceration of the left forehead, which was not repaired immediately in the emergency room, as per the patient's request, as she wanted a surgeon, preferably plastic surgeon to do the repair for cosmetic effect. Patient then was noted on further testing to have a small amount of subarachnoid blood seen in the sulci of both cerebral hemispheres on CT scan done without contrast. There was no evidence of subdural hemorrhage. Patient also had the benefit of a stat neurosurgical consult with Dr. Orozco, who comments that there would be no intervention at this time with repeat CT scan in the a.m., if unchanged, patient can be discharged home. At present, the patient is lying awake in bed in the intensive care unit with the frontal headache improved by Fioricet tablets as per Dr. Cruz, Neurology with the patient reporting with her head with the dressing on, with patient now reporting that the laceration was never repaired with a surgical consult, requested with Dr. Odilon Palmer and resident hall director to evaluate the patient as soon as possible within the 12 hour window after injury. The patient was on Plavix and aspirin prior to her fall with considerations for bleeding with low platelet count. Also noted with consideration for removing the dressing and treatment with final repair with sutures versus Steri-Strips or Dermabond as per surgical evaluation. Otherwise, the patient is resting comfortably in no acute distress. PAST MEDICAL HISTORY: Significant for triple vessel bypass surgery in 2004 with very small coronary artery, done by Dr. Timmons in [facility] with patient on Plavix and aspirin since then. She also had partial lumpectomy for lobular carcinoma in situ and atypical ductal hyperplasia in 02/2017, history of rheumatoid arthritis, recently diagnosed B-cell lymphoma, high grade in 07/2017 after biopsy of the right acromion, a lytic mass biopsy by Dr. Morris Ulrich at that time. She also had a positive Doppler ultrasound of her neck 70% to 99% occlusion of the left internal carotid artery in 07/2016. She had a MUGA scan in 07/2017, showing ejection fraction of 56%, history of Raynaud's phenomenon. FAMILY HISTORY AND SOCIAL HISTORY: Father at age 77 with CHF. Mother at 80 years old with sepsis. Father also suffered from carcinoma of the prostate. She has two sisters alive and well. The patient smoked approximately a pack a day for 25 years, quit 12 years ago, rare ETOH use. Works as a pharmacist. REVIEW OF SYSTEMS: A 12-point review of systems is done, which is negative to questioning except for items mentioned in the history of present illness. PHYSICAL EXAMINATION: VITAL SIGNS: Temperature 98.1, pulse 92, respirations 20, blood pressure 141/81 and pulse ox 100%. HEENT: She has a dressing on top of her head, forehead with laceration not inspected at this time, awaiting surgical evaluation with possible repair. Pupils equal, round, reactive to light and accommodation. Extraocular muscles were intact. Tongue is moist and midline. NECK: Supple. HEART: Regular rate. LUNGS: Clear. ABDOMEN: Soft, nontender. EXTREMITIES: No edema. Free range of motion. SKIN: Warm, dry except as above with ecchymotic changes on her arms. NEUROLOGIC: Awake, alert and oriented x3. LABORATORY DATA: Patient's labs were done. White blood cell count of 4.8, hemoglobin 10.7, hematocrit 32.1, platelet count of 105,000 with the chem metabolic panel within normal range. Her INR was 1.07. Her PTT 25. Her other tests included, she had a CT scan of her head done earlier today, which was described above. The impression was that of small amount of subarachnoid blood seen in the sulci of both cerebral hemispheres. No evidence of subdural hemorrhage. Patient also had chest x-ray done earlier today, was read as no acute finding, COPD, mild cardiomegaly and pulmonary venous congestion. A CT of her cervical spine was also done that was read as no acute findings. EKG was done, it has not been read. ASSESSMENT: The assessment for this patient is that of new subarachnoid hemorrhage, status post trauma, fall, questionable loss of consciousness, high-grade B-cell lymphoma, currently on R-CHOP, history of breast carcinoma, status post partial mastectomy, left internal carotid 70% to 99% occlusion, history of coronary artery bypass graft, coronary artery disease 10 years prior, history of Raynaud disease, hyperlipidemia, hypertension, depression, recent treatment for oropharyngeal candidiasis. PLAN: For this patient after conversation with Dr. Cameron is to continue present medical regimen with consult with Dr. Orozco appreciated. Consult with Dr. Cruz also appreciated. We will ask for consult with Dr. Odilon Palmer regarding her laceration repair, also Dr. Amado, her sales service professional, with Dr. Cartagena as a medical consult, covering for Dr. Contreras, her primary doctor. The patient's medicines were now listed, they include Toprol XL, Crestor, Plavix, Zetia, Pepcid, aspirin, Singulair, Zyrtec, allopurinol, Elavil, Colace, tramadol, Arimidex, vitamin D, MiraLax, Mycelex Tab, magic mouth wash. She recently completed treatment with prednisone, Compazine and Ativan, post chemo. These medications will be renewed except for the Plavix, Zetia, Crestor, aspirin, Zyrtec and tramadol, we will use Fioricet instead and vitamin D and the MiraLax also be held as indicated. The prognosis for this patient is guarded. This is a complex patient with a comprehensive medically necessary and appropriate visit carried out in excess of 90 minutes [id number] time with consults held with doctors as listed above with also the patient's questions answered to her satisfaction with prognosis for this patient guarded. We will do further testing as per Dr. Orozco and Dr. Cruz. Sal Callejas MD
[2017-10-22] MEDS: Metoprolol Succinate 50 mg XL Tab PO SCH (08:33)
--- NOTE | 2017-10-22 09:28 | CP.PCM.PN ---
Subjective - Date & Time of Evaluation Date of Evaluation: 10/22/17 Time of Evaluation: 09:28 - Subjective Subjective: Junie Abel, PGY2, Progress Note for Dr Cameron: This is a 57 F with PMH B-cell lymphoma on RCHOP, CAD/CABG over 10 years ago, on dual antiplatelet ASA, Plavix, Raynaud's phenomenon, s/p chest port, presents s/p mechanical fall, found to have bilateral small subarachnoid hemorrhage, transferred to ICU for further care. Patient seen and examined at bedside in ICU. No acute events overnight. This AM, patient reports pain 6/10 left frontal area at site of laceration. Denies blurred vision, nausea, vomiting. Reports moderate appetite. BM 2 days ago. Denies mouth sore, petechiae , easy bruising, abdominal pain, leg swelling, focal weakness, seizure like activity. Objective - Vital Signs/Intake and Output Vital Signs (last 24 hours): Temp Pulse Resp BP Pulse Ox 98.2 F 84 20 154/91 H 100 10/22/17 03:00 10/22/17 08:33 10/21/17 19:20 10/22/17 08:33 10/21/17 19:01 Intake and Output: 10/22/17 10/22/17 06:59 18:59 Intake Total 2000 Output Total 2450 Balance -450 - Medications Medications: Current Medications Acetaminophen/Butalbital/Caffeine (Fioricet) 1 tab PO Q4H PRN PRN Reason: headache pain Last Admin: 10/22/17 02:17 Dose: 1 tab Allopurinol (Zyloprim) 100 mg PO BID [facility] Last Admin: 10/21/17 17:13 Dose: 100 mg Amitriptyline HCl (Elavil) 50 mg PO HS [facility] Last Admin: 10/21/17 22:53 Dose: 50 mg Anastrozole (Arimidex 1 Mg Tab) 1 mg PO DAILY [facility] Clotrimazole (Mycelex Tab) 10 mg MT 5XD [facility] Last Admin: 10/22/17 08:35 Dose: 10 mg Al Hydrox/Mg Hydrox/Simethicone 30 ml/Diphenhydramine HCl 75 mg/Lidocaine 30 ml 0 ml PO QID PRN PRN Reason: Mouth/Throat Pain Docusate Sodium (Colace) 100 mg PO BID [facility] Famotidine (Pepcid) 20 mg PO QPM [facility] Last Admin: 10/21/17 17:13 Dose: 20 mg Metoprolol Succinate (Toprol Xl) 50 mg PO BRK [facility] Last Admin: 10/22/17 08:33 Dose: 50 mg Montelukast Sodium (Singulair) 10 mg PO QPM [facility] Last Admin: 10/21/17 17:13 Dose: 10 mg - Labs Labs: 10/22/17 06:10 10/22/17 06:10 PT 12.3 SECONDS (9.4-12.5) 10/21/17 11:25 INR 1.07 10/21/17 11:25 APTT 25.3 Seconds (25.1-36.5) 10/21/17 11:25 - Constitutional Appears: Non-toxic, No Acute Distress - Head Exam Head Exam: NORMOCEPHALIC Additional comments: + left frontal scalp, band aid in place at site of suture/laceration, c/d/i - Eye Exam Eye Exam: EOMI, PERRL. absent: Conjunctival injection, Nystagmus, Scleral icterus Pupil Exam: NORMAL ACCOMODATION, PERRL. absent: Fixed, Irregular, Miosis, Unequal - ENT Exam ENT Exam: Mucous Membranes Moist - Neck Exam Neck Exam: Full ROM - Respiratory Exam Respiratory Exam: Clear to Ausculation Bilateral, NORMAL BREATHING PATTERN. absent: Accessory Muscle Use, Rales, Respiratory Distress, Stridor - Cardiovascular Exam Cardiovascular Exam: RRR, +S1, +S2. absent: Murmur - GI/Abdominal Exam GI & Abdominal Exam: Soft, Normal Bowel Sounds. absent: Distended, Firm, Guarding, Rigid, Tenderness, Mass, Organomegaly, Rebound - Extremities Exam Extremities Exam: Normal Inspection. absent: Calf Tenderness, Pedal Edema - Back Exam Back Exam: NORMAL INSPECTION - Neurological Exam Neurological Exam: Alert, Awake. absent: Oriented x3 Neuro motor strength exam: Left Upper Extremity: 5, Right Upper Extremity: 5, Left Lower Extremity: 5, Right Lower Extremity: 5 - Psychiatric Exam Psychiatric exam: Normal Affect, Normal Mood - Skin Skin Exam: Dry, Normal Color, Warm Assessment and Plan - Assessment and Plan (Free Text) Assessment: 57 F with PMH B-cell lymphoma on RCHOP, breast cancer s/p lumpectomy, CAD/CABG over 10 years ago, on dual antiplatelet, Raynaud's phenomenon, s/p chest port, presents s/p mechanical fall, found to have bilateral small subarachnoid hemorrhage, no intervention as per neurosurgery. Repeat head CT shows stable bleed: Subarachnoid hemorrhage: 2/2 mechanical fall - Head CT shows small amount of subarachnoid blood seen in sulci of both cerebral hemispheres. no evidence of SAH. - Cervical spine CT: no fractures. degenerative disease seen. - repeat head CT shows stable bleed - Neuro surgery eval appreciated. No acute intervention at this time. repeat CT in AM, if unchanged, can d/c home - CXR mild cardiomegaly. pulmonary venous congestion. - 7 cm forehead laceration repaired by surgery. Suture removal in 10 days. - Neurology consulted. f/u recs - c/w neuro checks - Since patient was on Plavix, will discuss with Cardio if patient can be given platelets in setting of cardiac patient. - will hold home ASA, plavix in setting of brain bleed. await neurosx/cardio recs for resuming these meds. Fall: likely mechanical vs syncopal - head/neck CTA neg - Cardio consulted. F/u recs. - neuro eval requested. appreciate recs. - PT eval. Hx of B cell lymphoma on chemo: - on home asatrozole - allopurinol Hx of right sided breast cancer s/p lumpectomy: - c/w home anastrozole Hx of CAD/CABG: - home metoprolol - hold home asa, plavix - f.u cardio recs regarding resuming these meds PPX: pepcid, hold AC in setting of bleed Discussed with Dr Cameron.
--- NOTE | 2017-10-22 09:59 | CP.CCUPN ---
<UdayAngel foley - Last Filed: 10/22/17 09:56> CCU Subjective - Physician Review Events Since Last Encounter (Free Text): Angel Calhoun, PGY-1 ICU Progress Note Patient seen and examined at bedside this morning. No acute events overnight. Patient denies any current complaints. Denies CP, SOB, abdominal pain, headaches , muscle weakness, numbness, tingling and urinary complaints. 12 point ROS noted here, otherwise negative. CCU Objective - Vital Signs / Intake & Output Vital Signs (Last 4 hours): Vital Signs Pulse BP 10/22/17 08:33 84 154/91 H Intake and Output (Last 8hrs): Intake & Output 10/21/17 10/22/17 10/22/17 22:59 06:59 14:59 Intake Total 1600 400 Output Total 1200 1250 Balance 400 -850 Weight 165 lb Intake: IV 1000 Right Antecubital 1000 Oral 600 400 Output: Urine 1200 1250 Urine, Voided 1200 1250 Stool 0 Other: Voiding Method Toilet - Physical Exam Head: Positive for: Laceration (laceration dressing has no gross blood or pus leakage) Pupils: Positive for: PERRL Extroacular Muscles: Positive for: EOMI Conjunctiva: Positive for: Normal Mouth: Positive for: Moist Mucous Membranes Neck: Positive for: Normal Range of Motion. Negative for: MIDLINE TENDERNESS, Paraspinal Tenderness Respiratory/Chest: Positive for: Clear to Auscultation, Good Air Exchange. Negative for: Respiratory Distress, Tachypneic Cardiovascular: Positive for: Regular Rate and Rhythm, Normal S1, S2 Abdomen: Negative for: Tenderness, Distention, Peritoneal Signs Back: Negative for: Midline Tenderness, Paraspinal Tenderness Upper Extremity: Positive for: Other (ecchymoses present on LUE w/ palpable catheter embedded w/n skin). Negative for: Cyanosis, Edema Neurological: Positive for: GCS=15, CN II-XII Intact, Speech Normal, Motor Func Grossly Intact, Normal Sensory Function Skin: Positive for: Warm, Dry (Healed surgical midline scar present in chest), Laceration (2cm laceration noted to L jewish that is dressed), Other Psychiatric: Positive for: Alert, Oriented x 3, Normal Insight, Normal Concentration - Medications Active Medications: Active Medications Generic Name Dose Route Start Last Admin Trade Name Freq PRN Reason Stop Dose Admin Acetaminophen/Butalbital/Caffeine 1 tab 10/21/17 17:58 10/22/17 02:17 Fioricet PO 1 tab Q4H PRN Administration headache pain Allopurinol 100 mg 10/21/17 18:00 10/21/17 17:13 Zyloprim PO 100 mg BID MANUELA Administration Amitriptyline HCl 50 mg 10/21/17 22:00 10/21/17 22:53 Elavil PO 50 mg HS MANUELA Administration Anastrozole 1 mg 10/22/17 10:00 10/22/17 09:43 Arimidex 1 Mg Tab PO 1 mg DAILY MANUELA Administration Clotrimazole 10 mg 10/21/17 22:00 10/22/17 08:35 Mycelex Tab MT 10 mg 5XD MANUELA Administration Al Hydrox/Mg Hydrox/ 0 ml 10/21/17 19:26 Simethicone 30 ml/ PO Diphenhydramine HCl 75 mg/ QID PRN Lidocaine 30 ml Mouth/Throat Pain Docusate Sodium 100 mg 10/22/17 10:00 10/22/17 09:42 Colace PO 100 mg BID MANUELA Administration Famotidine 20 mg 10/21/17 18:00 10/21/17 17:13 Pepcid PO 20 mg QPM MANUELA Administration Metoprolol Succinate 50 mg 10/22/17 08:00 10/22/17 08:33 Toprol Xl PO 50 mg BRK MANUELA Administration Montelukast Sodium 10 mg 10/21/17 18:00 10/21/17 17:13 Singulair PO 10 mg QPM MANUELA Administration - Patient Studies Lab Studies: Lab Studies 10/22/17 10/22/17 Range/Units 06:10 06:10 WBC 4.7 (4.5-11.0) 10^3/ul RBC 3.18 L (3.5-6.1) 10^6/uL Hgb 10.1 L (12.0-16.0) g/dL Hct 30.2 L (36.0-48.0) % MCV 95.0 (80.0-105.0) fl MCH 31.8 (25.0-35.0) pg MCHC 33.4 (31.0-37.0) g/dl RDW 14.8 H (11.5-14.5) % Plt Count 107 L (120.0-450.0) 10^3/uL MPV 9.4 (7.0-11.0) fl Gran % 68.0 (50.0-68.0) % Lymph % (Auto) 16.6 L (22.0-35.0) % Baker % (Auto) 14.6 H (1.0-6.0) % Eos % (Auto) 0.6 L (1.5-5.0) % Baso % (Auto) 0.2 (0.0-3.0) % Gran # 3.16 (1.4-6.5) Lymph # (Auto) 0.8 L (1.2-3.4) Baker # (Auto) 0.7 H (0.1-0.6) Eos # (Auto) 0.0 (0.0-0.7) Baso # (Auto) 0.01 (0.0-2.0) K/mm3 Sodium 140 (132-148) mmol/L Potassium 3.9 (3.6-5.0) mmol/L Chloride 107 (98-107) mmol/L Carbon Dioxide 25 (21-33) mmol/L Anion Gap 12 (10-20) BUN 3 L (7-21) mg/dL Creatinine 0.5 L (0.7-1.2) mg/dl Est GFR ( Amer) > 60 Est GFR (Non-Af Amer) > 60 Random Glucose 101 (70-110) mg/dL Calcium 8.7 (8.4-10.5) mg/dL Phosphorus 4.1 (2.5-4.5) mg/dL Magnesium 2.0 (1.7-2.2) mg/dL Total Bilirubin 0.2 (0.2-1.3) mg/dL AST 18 (14-36) U/L ALT 23 (7-56) U/L Alkaline Phosphatase 78 (38-126) U/L Total Protein 5.8 (5.8-8.3) g/dL Albumin 3.3 (3.0-4.8) g/dL Globulin 2.5 gm/dL Albumin/Globulin Ratio 1.3 (1.1-1.8) Laboratory Results - last 24 hr 10/22/17 10/22/17 06:10 06:10 WBC 4.7 RBC 3.18 L Hgb 10.1 L Hct 30.2 L MCV 95.0 MCH 31.8 MCHC 33.4 RDW 14.8 H Plt Count 107 L MPV 9.4 Gran % 68.0 Lymph % (Auto) 16.6 L Baker % (Auto) 14.6 H Eos % (Auto) 0.6 L Baso % (Auto) 0.2 Gran # 3.16 Lymph # (Auto) 0.8 L Baker # (Auto) 0.7 H Eos # (Auto) 0.0 Baso # (Auto) 0.01 Sodium 140 Potassium 3.9 Chloride 107 Carbon Dioxide 25 Anion Gap 12 BUN 3 L Creatinine 0.5 L Est GFR ( Amer) > 60 Est GFR (Non-Af Amer) > 60 Random Glucose 101 Calcium 8.7 Phosphorus 4.1 Magnesium 2.0 Total Bilirubin 0.2 AST 18 ALT 23 Alkaline Phosphatase 78 Total Protein 5.8 Albumin 3.3 Globulin 2.5 Albumin/Globulin Ratio 1.3 EKG/Cardiology Studies: Cardiology / EKG Studies 10/21/17 13:43 EKG [ELECTROCARDIOGRAM] Stat Comment: Reason For Exam: fall Critical Care Progress Note - Nutrition Nutrition: Nutrition Category Date Time Status Heart Healthy Diet [DIET] Diets 10/21/17 Dinner Active Assessment/Plan - Assessment and Plan (Free Text) Assessment: This is a 57 year old female with PMH of B cell lymphoma on chemotherapy and CAD s/p CABG 10 years presenting to the ICU for management of SAH after mechanical fall. Final read of CT head this morning is pending. Will follow neurology and neurosurgery recommendations. Plan: Neuro: -maintain normothermia -AAO x3, moving extremities spontaneously past midline -CT head yesterday showed small B/L SAH -CT head today is pending final read, likely discharge if negative -per neurosurgery, no surgery at this time -will follow neurology recommendations in regards to AC, currently holding ASA/ plavix Cardio: -maintain MAP>65 -will monitor vitals including HR and BP closely Lungs: -SaO2 >90% -supplementary O2 PRN Renal: -maintain euvolemia -avoid nephrotoxic agents, hypochloremia -replace electrolytes as needed -BUN/Cr WNL today Heme: -Hx of B cell lymphoma, on home anastrazole -As stated above, hold ASA/plavix for now Endo: -maintain euglycemia ID: -WBC WNL today, afebrile -GI: -heart healthy diet -GI prophylaxis with pepcid <Rogelio Diaz - Last Filed: 10/22/17 11:06> CCU Objective - Vital Signs / Intake & Output Vital Signs (Last 4 hours): Vital Signs Pulse BP 10/22/17 08:33 84 154/91 H Intake and Output (Last 8hrs): Intake & Output 10/21/17 10/22/17 10/22/17 22:59 06:59 14:59 Intake Total 1600 400 Output Total 1200 1250 Balance 400 -850 Weight 165 lb Intake: IV 1000 Right Antecubital 1000 Oral 600 400 Output: Urine 1200 1250 Urine, Voided 1200 1250 Stool 0 Other: Voiding Method Toilet - Medications Active Medications: Active Medications Generic Name Dose Route Start Last Admin Trade Name Freq PRN Reason Stop Dose Admin Acetaminophen/Butalbital/Caffeine 1 tab 10/21/17 17:58 10/22/17 02:17 Fioricet PO 1 tab Q4H PRN Administration headache pain Allopurinol 100 mg 10/21/17 18:00 10/22/17 10:50 Zyloprim PO 100 mg BID MANUELA Administration Amitriptyline HCl 50 mg 10/21/17 22:00 10/21/17 22:53 Elavil PO 50 mg HS MANUELA Administration Anastrozole 1 mg 10/22/17 10:00 10/22/17 09:43 Arimidex 1 Mg Tab PO 1 mg DAILY MANUELA Administration Clotrimazole 10 mg 10/21/17 22:00 10/22/17 08:35 Mycelex Tab MT 10 mg 5XD MANUELA Administration Al Hydrox/Mg Hydrox/ 0 ml 10/21/17 19:26 Simethicone 30 ml/ PO Diphenhydramine HCl 75 mg/ QID PRN Lidocaine 30 ml Mouth/Throat Pain Docusate Sodium 100 mg 10/22/17 10:00 10/22/17 09:42 Colace PO 100 mg BID MANUELA Administration Famotidine 20 mg 10/21/17 18:00 10/21/17 17:13 Pepcid PO 20 mg QPM MANUELA Administration Metoprolol Succinate 50 mg 10/22/17 08:00 10/22/17 08:33 Toprol Xl PO 50 mg BRK MANUELA Administration Montelukast Sodium 10 mg 10/21/17 18:00 10/21/17 17:13 Singulair PO 10 mg QPM MANUELA Administration - Patient Studies Lab Studies: Lab Studies 10/22/17 10/22/17 Range/Units 06:10 06:10 WBC 4.7 (4.5-11.0) 10^3/ul RBC 3.18 L (3.5-6.1) 10^6/uL Hgb 10.1 L (12.0-16.0) g/dL Hct 30.2 L (36.0-48.0) % MCV 95.0 (80.0-105.0) fl MCH 31.8 (25.0-35.0) pg MCHC 33.4 (31.0-37.0) g/dl RDW 14.8 H (11.5-14.5) % Plt Count 107 L (120.0-450.0) 10^3/uL MPV 9.4 (7.0-11.0) fl Gran % 68.0 (50.0-68.0) % Lymph % (Auto) 16.6 L (22.0-35.0) % Baker % (Auto) 14.6 H (1.0-6.0) % Eos % (Auto) 0.6 L (1.5-5.0) % Baso % (Auto) 0.2 (0.0-3.0) % Gran # 3.16 (1.4-6.5) Lymph # (Auto) 0.8 L (1.2-3.4) Baker # (Auto) 0.7 H (0.1-0.6) Eos # (Auto) 0.0 (0.0-0.7) Baso # (Auto) 0.01 (0.0-2.0) K/mm3 Sodium 140 (132-148) mmol/L Potassium 3.9 (3.6-5.0) mmol/L Chloride 107 (98-107) mmol/L Carbon Dioxide 25 (21-33) mmol/L Anion Gap 12 (10-20) BUN 3 L (7-21) mg/dL Creatinine 0.5 L (0.7-1.2) mg/dl Est GFR ( Amer) > 60 Est GFR (Non-Af Amer) > 60 Random Glucose 101 (70-110) mg/dL Calcium 8.7 (8.4-10.5) mg/dL Phosphorus 4.1 (2.5-4.5) mg/dL Magnesium 2.0 (1.7-2.2) mg/dL Total Bilirubin 0.2 (0.2-1.3) mg/dL AST 18 (14-36) U/L ALT 23 (7-56) U/L Alkaline Phosphatase 78 (38-126) U/L Total Protein 5.8 (5.8-8.3) g/dL Albumin 3.3 (3.0-4.8) g/dL Globulin 2.5 gm/dL Albumin/Globulin Ratio 1.3 (1.1-1.8) Laboratory Results - last 24 hr 10/22/17 10/22/17 06:10 06:10 WBC 4.7 RBC 3.18 L Hgb 10.1 L Hct 30.2 L MCV 95.0 MCH 31.8 MCHC 33.4 RDW 14.8 H Plt Count 107 L MPV 9.4 Gran % 68.0 Lymph % (Auto) 16.6 L Baker % (Auto) 14.6 H Eos % (Auto) 0.6 L Baso % (Auto) 0.2 Gran # 3.16 Lymph # (Auto) 0.8 L Baker # (Auto) 0.7 H Eos # (Auto) 0.0 Baso # (Auto) 0.01 Sodium 140 Potassium 3.9 Chloride 107 Carbon Dioxide 25 Anion Gap 12 BUN 3 L Creatinine 0.5 L Est GFR ( Amer) > 60 Est GFR (Non-Af Amer) > 60 Random Glucose 101 Calcium 8.7 Phosphorus 4.1 Magnesium 2.0 Total Bilirubin 0.2 AST 18 ALT 23 Alkaline Phosphatase 78 Total Protein 5.8 Albumin 3.3 Globulin 2.5 Albumin/Globulin Ratio 1.3 EKG/Cardiology Studies: Cardiology / EKG Studies 10/21/17 13:43 EKG [ELECTROCARDIOGRAM] Stat Comment: Reason For Exam: fall Critical Care Progress Note - Nutrition Nutrition: Nutrition Category Date Time Status Heart Healthy Diet [DIET] Diets 10/21/17 Dinner Active Attending/Attestation - Attestation I have personally seen and examined this patient.: Yes I have fully participated in the care of the patient.: Yes I have reviewed all pertinent clinical information: Yes Notes (Text): 10/22/17 11:02 The patient was seen and examined at the bedside. Patient care was discussed with resident Medical records, lab studies, and imaging were reviewed and management issues were discussed and formulated. Agree with above treatment plans as outlined in 's note with addition of the following: Subarachnoid hemorrhage \ CAD \ Lymphoma -hemodynamic monitoring to maintain MAP>65 -o2 supplementation to maintain Spo2>90 Pao2>60; currently comfortable on NC -repeat CT head shows no change in the amount of hemorrhage this AM -neurology team following -PO diet and aspiration precautions -continue neuro checks as per neurosurgery team -neurosurgery f\u , and also clearance as to when pt can be restarted on ASA\ Plavix -Heme\onc following -Pt\OT eval -DVT prophylaxis CCM time 25min
--- NOTE | 2017-10-22 10:47 | CT ---
Date of service: 10/22/2017 PROCEDURE: CT HEAD WITHOUT CONTRAST. HISTORY: intracranial hemorrhage COMPARISON: 10/21/2017 TECHNIQUE: Axial computed tomography images were obtained through the head/brain without intravenous contrast. Radiation dose: Total exam DLP = 856 mGy-cm. This CT exam was performed using one or more of the following dose reduction techniques: Automated exposure control, adjustment of the mA and/or kV according to patient size, and/or use of iterative reconstruction technique. FINDINGS: HEMORRHAGE: There is a moderate amount of subarachnoid hemorrhage that is unchanged. BRAIN: No mass effect or edema. No atrophy or chronic microvascular ischemic changes. VENTRICLES: Unremarkable. No hydrocephalus. CALVARIUM: Unremarkable. PARANASAL SINUSES: Unremarkable as visualized. No significant inflammatory changes. MASTOID AIR CELLS: Unremarkable as visualized. No inflammatory changes. OTHER FINDINGS: The report concurs with the preliminary [facility] report IMPRESSION: There is a moderate amount of subarachnoid hemorrhage that is unchanged.
--- NOTE | 2017-10-22 11:02 | CT ---
Date of service: 10/21/2017 PROCEDURE: CT Angiography of the neck with contrast HISTORY: f/u SAH COMPARISON: CT of the head 10/21 and 10/22/2017 TECHNIQUE: Contiguous axial images of the neck were obtained from the level of the skull-base to the superior mediastinum in the arteriographic phase of enhancement. Coronal and sagittal reformats or also generated. IV contrast dose: 150 cc of Omni 350 Radiation Dose - DLP: 470 mGy-cm This CT exam was performed using one or more of the following dose reduction techniques: Automated exposure control, adjustment of the mA and/or kV according to patient size, and/or use of iterative reconstruction technique. FINDINGS: RIGHT CAROTID ARTERIES: Calcified plaque with mild stenosis. LEFT CAROTID ARTERIES: Severe stenosis probably greater than 90 percent. The internal carotid is severely narrowed throughout its length. VERTEBRAL ARTERIES: Right Vertebral Artery: Normal. Left Vertebral Artery: Normal. OTHER FINDINGS: None. IMPRESSION: Left carotid.Severe stenosis probably greater than 90 percent. The internal carotid is severely narrowed throughout its length. Right carotid. Calcified plaque with mild stenosis PROCEDURE: CT Angiography of the Brain. HISTORY: f/u SAH COMPARISON: None available. TECHNIQUE: CT angiography of the intracranial arteries was performed. Coronal and sagittal maximum intensity projection reformated images were generated. This CT exam was performed using one or more of the following dose reduction techniques: Automated exposure control, adjustment of the mA and/or kV according to patient size, and/or use of iterative reconstruction technique. FINDINGS: INTERNAL CEREBRAL ARTERIES: Unremarkable. The skull base, petrous, cavernous and supraclinoid segments are bilaterally widely patent. ANTERIOR CEREBRAL ARTERIES: Unremarkable. A1 and A2 segments are widely patent. Smaller distal branches unremarkable, as visualized. MIDDLE CEREBRAL ARTERIES: Unremarkable. M1 and M2 segments are widely patent. Perisylvian branches grossly symmetric. POSTERIOR CIRCULATION: Basilar Artery: Unremarkable. Distal Vertebral Arteries: Unremarkable. Posterior Cerebral Arteries: Unremarkable. Posterior Inferior Cerebellar Arteries: Unremarkable. ANEURYSM/ VASCULAR MALFORMATIONS: None. OTHER FINDINGS: None. IMPRESSION: Unremarkable CT Angiography of the Brain.
--- NOTE | 2017-10-22 12:05 | CON ---
Copied To: Adair Amado MD Attending MD: Adair Amado MD DATE: 10/22/2017 CONSULTATION INDICATIONS: Fall with subarachnoid hemorrhage, history of coronary artery disease, coronary bypass surgery, on aspirin and Plavix. HISTORY OF PRESENT ILLNESS: This is a 57-year-old woman, known to our practice, who fell yesterday. She was walking her dog wearing Birkenstock sandals and believes that she tripped on an uneven sidewalk falling and striking her head, suffering a small laceration on the left forehead and a small subarachnoid hemorrhage based on CT scanning. She was admitted to the Intensive Care Unit. She has had evaluation by Dr. Cruz and Dr. Orozco. She is under the care of Dr. Cameron and Dr. Callejas for recent high-grade B-cell lymphoma, undergoing R-CHOP chemotherapy currently. Today, she feels fine without a chest pain or shortness of breath, headache or neurologic symptoms. There was no orthopnea, PND, syncope, vertigo, palpitations, fever, chills, coughs, sputum production, hemoptysis, edema, abdominal pain, nausea, vomiting, diarrhea, constipation or melena. PAST MEDICAL HISTORY: Extremely complex. She underwent coronary bypass surgery in 2005. She has a history of breast cancer with lumpectomy several years ago. She has recent diagnosis of B-cell lymphoma, undergoing R-CHOP chemotherapy. She has a history of hypertension, hyperlipidemia and cerebrovascular disease. She has a severe left internal carotid artery stenosis. She is a former smoker in the remote past. MEDICATIONS AT THE TIME OF ADMISSION: Include aspirin, Arimidex, Colace, Crestor, Elavil, Plavix, Singulair, metoprolol, vitamin D, Zetia, Zyrtec, allopurinol and Pepcid. ALLERGIES: THERE ARE NO KNOWN MEDICATION ALLERGIES. SOCIAL HISTORY: She lives at home. She is undergoing chemotherapy. She is a former remote smoker. She does not drink alcohol. She is a retired pharmacist. FAMILY HISTORY: Notable for heart disease and cancer. REVIEW OF SYSTEMS: Ten-point review of systems is otherwise unremarkable except as noted above. PHYSICAL EXAMINATION: GENERAL: She is a well-developed woman, lying in bed in Intensive Care Unit, in no acute distress. VITAL SIGNS: Notable for sinus rhythm at 84 beats per minute. She is afebrile. Blood pressure 154/91, respirations 20, O2 sat 100% on room air. HEENT: Reveals no neck vein distention, thyromegaly, carotid bruit. Mucous membranes moist. Conjunctivae pale. NECK: Supple. LUNGS: Lung roland clear throughout. HEART: Examination of the heart revealed normal first and second heart sounds. ABDOMEN: Soft. No mass, organomegaly, tenderness, rebound, guarding, CVA tenderness or palpable abdominal aortic aneurysm. EXTREMITY: Reveals no cyanosis, clubbing or edema. NEUROLOGICAL: Awake, alert and oriented. PSYCHIATRIC: Normal as to mood and affect. SKIN: Warm and dry. No rash or cellulitis. LABORATORY DATA AND IMAGING: The EKG demonstrates regular sinus rhythm, right ventricular conduction delay. Mild nonspecific ST-wave changes. CT scan of the head yesterday revealed a small amount of subarachnoid blood, etc. A CT of the cervical spine revealed no acute findings. A chest x-ray revealed no acute findings. COPD. Head and neck CTA and repeat CT of the head are pending this morning. White count normal, hemoglobin 10.1, hematocrit 30.2, platelet count 107,000. PT/INR, PTT unremarkable. Electrolytes: BUN, creatinine, blood sugar, LFTs, magnesium all unremarkable. IMPRESSION: Dafne Gamez is a 57-year-old woman with coronary artery disease, remote coronary artery bypass surgery, who fell yesterday striking her head. She does not recall the details, but believes that she tripped on a sidewalk while wearing Birkenstock sandals. There was no palpitation, vertigo, dizziness prior to the fall. After the fall, she felt well without any cardiac symptoms. She has been monitored in the Intensive Care Unit. No arrhythmia has been detected. She is undergoing neurologic and neurosurgical evaluation for subarachnoid hemorrhage. Laceration has been sutured. She is in the midst of chemotherapy for aggressive B-cell lymphoma. At this time, aspirin and Plavix are being held. The repeat CT scan and the CTA of the neck are pending. She is being followed by Oncology, Neurology, Neurosurgery, collar tacker, surgery. Her vital signs have been stable. She has no neurologic symptoms. No headache. At this time, I will review her prior cardiac records. Aspirin and Plavix can be resumed according to Neurology and Neurosurgery and they can be held for whatever period is necessary. She can be out of bed to a chair. I will follow along with you. I will make additional recommendations based on her clinical course. Adair Amado MD TRU
--- NOTE | 2017-10-22 12:32 | CP.PCM.PN ---
Subjective - Date & Time of Evaluation Date of Evaluation: 10/22/17 Time of Evaluation: 12:31 - Subjective Subjective: traumatic SAH repeat ct unchanged cleared from my point of view for d.c Objective - Vital Signs/Intake and Output Vital Signs (last 24 hours): Temp Pulse Resp BP Pulse Ox 98.2 F 84 20 154/91 H 100 10/22/17 03:00 10/22/17 08:33 10/21/17 19:20 10/22/17 08:33 10/21/17 19:01 Intake and Output: 10/22/17 10/22/17 06:59 18:59 Intake Total 1999 Output Total 2450 Balance -450 - Medications Medications: Current Medications Acetaminophen/Butalbital/Caffeine (Fioricet) 1 tab PO Q4H PRN PRN Reason: headache pain Last Admin: 10/22/17 02:17 Dose: 1 tab Allopurinol (Zyloprim) 100 mg PO BID [facility] Last Admin: 10/22/17 10:50 Dose: 100 mg Amitriptyline HCl (Elavil) 50 mg PO HS [facility] Last Admin: 10/21/17 22:53 Dose: 50 mg Anastrozole (Arimidex 1 Mg Tab) 1 mg PO DAILY [facility] Last Admin: 10/22/17 09:43 Dose: 1 mg Clotrimazole (Mycelex Tab) 10 mg MT 5XD [facility] Last Admin: 10/22/17 08:35 Dose: 10 mg Al Hydrox/Mg Hydrox/Simethicone 30 ml/Diphenhydramine HCl 75 mg/Lidocaine 30 ml 0 ml PO QID PRN PRN Reason: Mouth/Throat Pain Docusate Sodium (Colace) 100 mg PO BID [facility] Last Admin: 10/22/17 09:42 Dose: 100 mg Famotidine (Pepcid) 20 mg PO QPM [facility] Last Admin: 10/21/17 17:13 Dose: 20 mg Metoprolol Succinate (Toprol Xl) 50 mg PO BRK [facility] Last Admin: 10/22/17 08:33 Dose: 50 mg Montelukast Sodium (Singulair) 10 mg PO QPM [facility] Last Admin: 10/21/17 17:13 Dose: 10 mg Polyethylene Glycol (Miralax) 17 gm PO BID [facility] - Labs Labs: 10/22/17 06:10 10/22/17 06:10 PT 12.3 SECONDS (9.4-12.5) 10/21/17 11:25 INR 1.07 10/21/17 11:25 APTT 25.3 Seconds (25.1-36.5) 10/21/17 11:25
--- NOTE | 2017-10-22 15:54 | PN ---
Copied To: Stephen Cruz MD Attending MD: Stephen Cruz MD DATE: 10/22/2017 NEUROLOGY FOLLOWUP CHIEF COMPLAINT: Followup for status post subarachnoid hemorrhage, status post fall. SUBJECTIVE: The patient is sitting up in bed, in no acute distress. No acute events overnight. Repeat CAT scan today showed moderate amount of subarachnoid hemorrhage that is unchanged from prior, bilateral cerebrally. CT angiogram of the head showed no acute abnormalities. CT angio of the neck showed a left carotid artery severe stenosis, more than 90% on the left and right has mild stenosis. Therefore, she is on aspirin and Plavix, but needs to be held for at least 3 weeks due to the subarachnoid bleed and her low platelet count. PAST MEDICAL HISTORY: B-cell lymphoma, R-CHOP; coronary artery disease, status post CABG 10 years ago; Raynaud's; left carotid artery disease. PAST SURGICAL HISTORY: CABG. ALLERGIES: NO KNOWN DRUG ALLERGIES. SOCIAL HISTORY: She has a long history of smoking for 30 years, 1 pack per day, quit 10 years ago. No EtOH or illicit drug use. REVIEW OF SYSTEMS: Fourteen-point review of systems is negative except as per the HPI. FAMILY HISTORY: Noncontributory. MEDICATIONS: Reviewed by nurses' reconciliation sheet. LABORATORY DATA: Sodium is 140, potassium 3.9, chloride 107, carbon dioxide 25, BUN of 3, creatinine 0.5, random glucose of 101. PHYSICAL EXAMINATION: VITAL SIGNS: Temperature afebrile, pulse rate of 94, blood pressure 159/69, respiratory rate of 16. GENERAL: The patient is sitting up in bed, in no acute distress. HEENT: Atraumatic, normocephalic. PERRLA. Extraocular muscles intact. NECK: Supple. No JVD, no adenopathy noted. LUNGS: Clear to auscultation. No adventitious sounds. HEART: S1, S2. Normal rate and rhythm. No murmurs, rubs or gallops. ABDOMEN: Soft, nontender and nondistended. Bowel sounds are present. EXTREMITIES: No clubbing. No cyanosis. Peripheral pulses 2+ felt bilaterally. NEUROLOGIC: The patient is alert and oriented to person, place, month and year. Speech is fluent without any errors. Cranial nerves II through XII are intact. Motor exam: Moves all extremities equally. No pronator drift seen. Sensory exam: Light touch, pinprick, proprioception and vibration are intact. DTRs are 2+ throughout. Coordination: [id number]-[id number] intact. No dysmetria noted. Gait is deferred for now. ASSESSMENT AND PLAN: This is a 57-year-old woman with past medical history of coronary artery disease, status post coronary artery bypass graft; history of left carotid artery disease, more than 90%, seen on CT angio during her visit today and is on aspirin and Plavix; B-cell lymphoma, on R-CHOP. Presented with a mechanical fall while walking her dog. Hit her head and had small bilateral subarachnoid hemorrhage in the sulci, which repeat CAT scan shows that the blood is unchanged. CT angiogram of the head showed no acute intracranial abnormality or no aneurysms. CT angiogram of the neck showed left carotid artery disease, more than 90% and mild disease in the right. At this time, she has had a mild headache. She is on Fioricet 1 tab p.o. every 4 hours for the acute onset of headache. Neurosurgery followup evaluated and appreciated. At this time, recommend, 1. We would like to request to monitor for another 24 hours given her still significant amount of subarachnoid bleed and given that she has a low platelet count from her baseline. 2. Follow up with Oncology and Hematology in regards to her low platelet count and given her history of beta-cell lymphoma. 3. No antiplatelet therapy for at least 3 weeks with the onset of the bleed. 4. Physical Therapy/Occupational Therapy evaluation. Thank you for this followup. Stephen Cruz MD
[2017-10-22] MEDS: POLYETHYLENE GLYCOL 3350 17 GM/Dose PACKET PO SCH (17:14)
[2017-10-23 06:13] VITALS: O2SAT 100
[2017-10-23 06:32] LABS: BASO # 0.02 K/mm3 (0.0-2.0); BASO % 0.4 % (0.0-3.0); EOS # 0.1 (0.0-0.7); EOS % 1.1 % (1.5-5.0); GRAN # 2.99 (1.4-6.5); GRAN % 65.6 % (50.0-68.0); HEMOGLOBIN 10.6 g/dL (12.0-16.0); LYMPH # 0.8 (1.2-3.4); LYMPH % 17.5 % (22.0-35.0); MEAN CELL VOLUME 95.2 fl (80.0-105.0); MEAN CORPUSCULAR HGB CONC 33.7 g/dl (31.0-37.0); MEAN PLATELET VOLUME 9.7 fl (7.0-11.0); MONO # 0.7 (0.1-0.6); MONO % 15.4 % (1.0-6.0); RBC 3.31 10^6/uL (3.5-6.1); WHITE BLOOD COUNT 4.6 10^3/ul (4.5-11.0)
[2017-10-23 06:52] LABS: ALB/GLOB RATIO 1.3 (1.1-1.8); ALBUMIN 3.4 g/dL (3.0-4.8); ALT/SGPT 19 U/L (7-56); AST/SGOT 25 U/L (14-36); BLOOD UREA NITROGEN 4 mg/dL (7-21); CALCIUM 9.1 mg/dL (8.4-10.5); GFR AFRICAN-AMERICAN > 60; GFR NON-AFRICAN AMERICAN > 60
[2017-10-23] MEDS: Metoprolol Succinate 50 mg XL Tab PO SCH (10:10)
[2017-10-23] MEDS: POLYETHYLENE GLYCOL 3350 17 GM/Dose PACKET PO SCH (10:10)
[2017-10-23 11:59] VITALS: BP 113/90; RESP 21; TEMP 98.1
--- NOTE | 2017-10-23 14:23 | CP.PCM.PN ---
Subjective - Date & Time of Evaluation Date of Evaluation: 10/23/17 Time of Evaluation: 14:00 - Subjective Subjective: DATE: 10/23/2017 NEUROLOGY FOLLOWUP CHIEF COMPLAINT: Followup for status post subarachnoid hemorrhage, status post fall. SUBJECTIVE: The patient is sitting up in bed, in no acute distress. No acute events overnight. Headache better with fioricet.Platelet count 116 today. PAST MEDICAL HISTORY: B-cell lymphoma, R-CHOP; coronary artery disease, status post CABG 10 years ago; Raynaud's; left carotid artery disease. PAST SURGICAL HISTORY: CABG. ALLERGIES: NO KNOWN DRUG ALLERGIES. SOCIAL HISTORY: She has a long history of smoking for 30 years, 1 pack per day, quit 10 years ago. No EtOH or illicit drug use. REVIEW OF SYSTEMS: Fourteen-point review of systems is negative except as per the HPI. FAMILY HISTORY: Noncontributory. MEDICATIONS: Reviewed by nurses' reconciliation sheet. LABORATORY DATA: Sodium is 140, potassium 3.9, chloride 107, carbon dioxide 25, BUN of 3, creatinine 0.5, random glucose of 101. PHYSICAL EXAMINATION: VITAL SIGNS: Reviewed. GENERAL: The patient is sitting up in bed, in no acute distress. HEENT: Atraumatic, normocephalic. PERRLA. Extraocular muscles intact. NECK: Supple. No JVD, no adenopathy noted. LUNGS: Clear to auscultation. No adventitious sounds. HEART: S1, S2. Normal rate and rhythm. No murmurs, rubs or gallops. ABDOMEN: Soft, nontender and nondistended. Bowel sounds are present. EXTREMITIES: No clubbing. No cyanosis. Peripheral pulses 2+ felt bilaterally. NEUROLOGIC: The patient is alert and oriented to person, place, month and year. Speech is fluent without any errors. Cranial nerves II through XII are intact. Motor exam: Moves all extremities equally. No pronator drift seen. Sensory exam: Light touch, pinprick, proprioception and vibration are intact. DTRs are 2+ throughout. Coordination: Uyjqjs-yv-ognl intact. No dysmetria noted. Gait is deferred for now. ASSESSMENT AND PLAN: This is a 57-year-old woman with past medical history of coronary artery disease, status post coronary artery bypass graft; history of left carotid artery disease, more than 90%, seen on CT angio during her visit today and is on aspirin and Plavix; B-cell lymphoma, on R-CHOP. Presented with a mechanical fall while walking her dog. Hit her head and had small bilateral subarachnoid hemorrhage in the sulci, which repeat CAT scan shows that the blood is unchanged. CT angiogram of the head showed no acute intracranial abnormality or no aneurysms. CT angiogram of the neck showed left carotid artery disease, more than 90% and mild disease in the right. At this time, recommend, 1. F/U as outpt and will repeat ctt head in 3 weeks. 2. Follow up with Oncology and Hematology in regards to her low platelet count and given her history of beta-cell lymphoma. 3. No antiplatelet therapy for at least 3 weeks with the onset of the bleed. 4. Physical Therapy/Occupational Therapy evaluation. Thank you for this followup. stable for discharge Stephen Cruz MD Objective - Vital Signs/Intake and Output Vital Signs (last 24 hours): Temp Pulse Resp BP Pulse Ox 98.1 F 83 21 113/90 100 10/23/17 11:58 10/23/17 11:58 10/23/17 11:58 10/23/17 11:58 10/23/17 06:00 Intake and Output: 10/23/17 10/23/17 06:59 18:59 Intake Total 240 Balance 240 - Medications Medications: Current Medications Acetaminophen/Butalbital/Caffeine (Fioricet) 1 tab PO Q4H PRN PRN Reason: headache pain Last Admin: 10/22/17 23:17 Dose: 1 tab Allopurinol (Zyloprim) 100 mg PO BID MANUELA Last Admin: 10/23/17 10:10 Dose: 100 mg Amitriptyline HCl (Elavil) 50 mg PO HS MANUELA Last Admin: 10/22/17 21:46 Dose: 50 mg Anastrozole (Arimidex 1 Mg Tab) 1 mg PO DAILY [facility]UELA Last Admin: 10/23/17 10:12 Dose: 1 mg Clotrimazole (Mycelex Tab) 10 mg MT 5XD MANUELA Last Admin: 10/23/17 10:10 Dose: 10 mg Al Hydrox/Mg Hydrox/Simethicone 30 ml/Diphenhydramine HCl 75 mg/Lidocaine 30 ml 0 ml PO QID PRN PRN Reason: Mouth/Throat Pain Docusate Sodium (Colace) 100 mg PO BID [facility] Last Admin: 10/23/17 10:10 Dose: 100 mg Famotidine (Pepcid) 20 mg PO QPM [facility] Last Admin: 10/22/17 17:15 Dose: 20 mg Metoprolol Succinate (Toprol Xl) 50 mg PO BRK [facility] Last Admin: 10/23/17 10:10 Dose: 50 mg Montelukast Sodium (Singulair) 10 mg PO QPM [facility] Last Admin: 10/22/17 17:15 Dose: 10 mg Polyethylene Glycol (Miralax) 17 gm PO BID [facility] Last Admin: 10/23/17 10:10 Dose: Not Given - Labs Labs: 10/23/17 06:00 10/23/17 06:00 PT 12.3 SECONDS (9.4-12.5) 10/21/17 11:25 INR 1.07 10/21/17 11:25 APTT 25.3 Seconds (25.1-36.5) 10/21/17 11:25
[2017-10-23 14:41] VITALS: PULSE 88
--- NOTE | 2017-10-25 16:07 | DS ---
Copied To: Kimberly Cameron MD Attending MD: Kimberly Cameron MD LOCATION: Patient is in room 262, bed 1. HISTORY OF PRESENT ILLNESS: The patient was admitted to the Emergency Room after she had fallen down on the street while walking her Irish dog, had questionable loss of consciousness; when she recovered, police had brought her to the hospital, the Emergency Room at [facility]. In the ER, patient was found to have bilateral subdural hemorrhage and she was admitted to the unit for further observation. Patient was seen in consultation by neurosurgeon, Dr. Orozco, who felt that we should watch and wait as far as subarachnoid hemorrhage was concerned. 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 Maldonado and Dr. Gauthier in [place] who concurred with the diagnosis and agreed that patient should get four cycles of chemotherapy with R-CHOP along with concurrent or sequential radiation. Patient had 3 cycles of chemotherapy, last chemotherapy given about 12 days ago and patient is recovering from the ill effect of chemotherapy when this event took place. Patient has a significant cardiovascular history having had coronary artery bypass surgery about 9 to 10 years ago. In addition to that, the patient has significant vascular disease as well, has noted carotid artery endarterectomy on the right side and significant carotid artery disease with greater than 80% obstruction on the left side, for which she is on aspirin and Plavix and nothing new has been done for her while it is being monitored both by vascular doctor, Dr. Cueto at [facility] and Cardiovascular, Dr. Thompson and Dr. Amado in [place]. Patient also has been having a lots of aches and pains. She is proceeding with diagnosis of lymphoma where there was a question whether the patient had RA negative rheumatoid arthritis. The aches and pains appeared to have improved on the immunosuppressive effects of the chemotherapy. Since the fall, patient has had no other recent events neurologically, one on the unit on the floor. Repeat CAT scan shows significant subdural hematoma without any progression. Please make a note of the fact that patient was on aspirin and Plavix until the day of admission to the hospital with subarachnoid hemorrhage. I told the patient that this in fact could also be contributing factor given the fact that the patient has borderline thrombocytopenia and the platelets are dysfunctional because of the Plavix and the aspirin. The patient has, otherwise, been improving. She has had no significant headaches, nausea, vomiting, fevers or chills. The new findings are subconjunctival hemorrhage just on the malar aspect of the left side of the face, which could be still resultant from the fall that she had. Thankfully, patient has had no other serious areas of ecchymosis except subdural hematoma. Patient has no significant injuries on her knees, on her shoulders at this time. Subjectively, patient is feeling better. She has had no acute events overnight. She is eager to go home and follow up as an outpatient. PHYSICAL EXAMINATION: GENERAL: Patient is awake, alert and oriented, in no acute distress. Patient has no evidence of ecchymosis. HEENT: On the malar aspect of the left side of the face, there is noted to be a sequelae from the fall that she has had. This could be a delayed effect. No other new areas of ecchymoses or hematomas are evidenced at this point in time after full examination of the patient. Head is normocephalic and atraumatic. The patient has a laceration on the left aspect of forehead above her left eye, which has been sutured with many sutures and Steri-Strips applied. 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 No evidence of any trauma to the patient's skull per se. Conjunctivae pale. Sclerae are anicteric. Pupils are equally reactive to light and accommodation. Examination of the oropharynx reveals no oropharyngeal lesions. Tongue is moist. No ulcerations are noted. NECK: Supple. There is no adenopathy. No jugular venous distention noted. LUNGS: Clear to percussion and auscultation. HEART: Reveals PMI within the fifth intercostal space inside the midclavicular line. S1 and S2 are normal. No gallop or murmur is heard. ABDOMEN: Soft and nontender. Liver and spleen are not palpable. No rebound, rigidity or guarding is noted. EXTREMITIES: Reveal no cyanosis, clubbing or edema. NEUROLOGIC: Reveals the patient to be awake, alert and oriented. No significant distress. Patient has no focalizing signs at this point in time. Patient is able to ambulate easily without any significant difficulties. LABORATORY DATA: Reveals sodium is 140, K 3.9, chloride 107, CO2 is 25, BUN is 3, creatinine is 0.5. Random blood sugar is 101. Chemistries are within normal limits. ASSESSMENT, NOTES AND PLAN: The patient is a 57-year-old female with past medical history of coronary artery disease, status post coronary artery bypass graft, history of significant carotid artery disease, status post right carotid endarterectomy, left carotid artery disease, more than 90%, seen on CT angio, on aspirin and Plavix. History of stage IB large cell lymphoma, currently on R-CHOP chemotherapy, completed six cycles of chemotherapy, currently in the hospital after mechanical fall while walking her dog. It appears patient does not recall the event, as to her she fell on the ground and the fall was not big enough to account for, after all that could be traumatic and favorably, one has to consider some sort of an ischemic event or a drop attack that may be contributing to the factor. Repeat CAT scan shows the blood is unchanged. CT of the head shows no acute intracranial abnormality, no aneurysm. CT angiogram of the neck showed left carotid artery disease more than 90%, mild disease in the right. Plan at this time after discussion with neurologist is to repeat a CAT scan of the head in about three weeks from the date of admission, which would be towards the end of the month. Followup with Dr. Jerrell Thompson. Patient may need to have a loop recorder inserted to make sure there was no cardiac event. Patient needs a followup with Dr. Cueto, Cardiovascular at [facility] to assess the need for anything could be done for her left carotid. Patient at present probably have to stay off anticoagulated therapy for the next three weeks. I told the patient to follow up with us by Wednesday. I told her to go ahead with the PET/CT scan, which is scheduled for this week with an idea of the rest of the body as far as her lymphoma is concerned. We will give the patient local radiation and wait for the fourth cycle of chemotherapy until the patient's other issues to the head are completely resolved. In the meantime, she will keep followup with neurologist, vascular surgeon and the art gilder as well. Routine post exam instructions are given to the patient. No significant dietary restrictions have been made. Patient is well aware of her diet restriction as far as the cardiovascular disease was concerned. Patient will continue all her other medications except for the aspirin and Plavix, which we have told her to hold off at this point in time. Overall prognosis is excellent as far as lymphoma is concerned. She will continue Arimidex one daily, Colace 100 b.i.d., Elavil 50 mg p.o. at bedtime, Fioricet one tab every 4 hours p.r.n., Magic mouth wash four times a day p.r.n., Mycelex 10 mg p.o. every 4 hours, Miralax 17 g b.i.d. and famotidine 20 mg p.o. at bedtime. Patient will continue Singulair 10 mg at evening time, Toprol 50 mg p.o. daily, Zyloprim 100 mg p.o. b.i.d. CONDITION ON DISCHARGE: Fair. As mentioned, patient will follow up in the office in about three days. Please make a note this is a complex discharge. Patient has multiple comorbid medical issues. Time spent was greater than 90 minutes correlating all the facts, going over all the medicines and assigning treatment followups for the various specialists over the next 10 days. This is a complex patient with multiple comorbid medical issues. Kimberly Cameron MD
== END 2017-10-23 17:02 | disposition home or self-care (01) | DRG 83 ==
LOC: ED 10:05 → ERH 12:56 → CCU 14:35 → 2RNO 10-22 16:25
PROVIDERS: ADMIT Internal Medicine Nephrology; ATTEND Family Medicine
PROC: 0HQ1XZZ Repair Face Skin, External Approach (ICD-10-PCS; principal; 2017-10-21)
DX: S06.6X9A Traumatic subarachnoid hemorrhage with loss of consciousness of unspecified duration, initial encounter (principal); C85.10 Unspecified B-cell lymphoma, unspecified site; S01.81XA Laceration without foreign body of other part of head, initial encounter; I73.00 Raynaud's syndrome without gangrene; I25.10 Atherosclerotic heart disease of native coronary artery without angina pectoris; H11.32 Conjunctival hemorrhage, left eye; I10 Essential (primary) hypertension; E78.5 Hyperlipidemia, unspecified; E78.00 Pure hypercholesterolemia, unspecified; I65.22 Occlusion and stenosis of left carotid artery; M06.9 Rheumatoid arthritis, unspecified; W18.09XA Striking against other object with subsequent fall, initial encounter; D69.6 Thrombocytopenia, unspecified; Z79.82 Long term (current) use of aspirin; Y93.K1 Activity, walking an animal; Z95.1 Presence of aortocoronary bypass graft; Z87.891 Personal history of nicotine dependence; Z79.02 Long term (current) use of antithrombotics/antiplatelets; Y92.480 Sidewalk as the place of occurrence of the external cause; Z85.3 Personal history of malignant neoplasm of breast

== ENCOUNTER 2018-08-04 09:28 | Outpatient (CLI) | payer BC | END 2018-08-04 09:29 | disposition home or self-care (01) | LOC: RAD 09:28 | DX: D05.00 Lobular carcinoma in situ of unspecified breast (principal) ==